=== PATIENT | female | born 1950 | race Caucasian/White ===

== ENCOUNTER → 2016-05-22 | Outpatient (CLI) | payer OTHER ==
[2014-09-27 16:21] VITALS: BP 153/91
[2016-05-22 14:14] LABS: BILIRUBIN,URINE NEGATIVE (NEGATIVE); BLOOD/HEMOGLOBIN,URINE 1+ (NEGATIVE); GLUCOSE, URINE NEGATIVE (NEGATIVE); KETONES,URINE NEGATIVE (NEGATIVE); LEUKOCYTE ESTERASE ,URINE NEGATIVE (NEGATIVE); NITRITES,URINE NEGATIVE (NEGATIVE); PROTEIN,URINE NEGATIVE (NEGATIVE); UROBILINOGEN,URINE NORMAL (NORMAL)
[2016-05-22 14:16] LABS: BASOPHILS % (AUTO) 0.5 % (0.2-1.0); EOSINOPHILS # (AUTO) 0.2 x10^3/uL (0.0-0.2); EOSINOPHILS % (AUTO) 3.5 % (0.9-2.9); HEMATOCRIT 39.5 % (36.0-47.0); LYMPHOCYTES # (AUTO) 1.5 X10^3/uL (1.3-2.9); LYMPHOCYTES % (AUTO) 27.5 % (21.0-51.0); MEAN CORPUSCULAR HEMOGLOBIN 30.2 pg (27.0-34.0); MEAN CORPUSCULAR HGB CONC 32.9 g/dL (33.0-35.0); MEAN CORPUSCULAR VOLUME 91.9 fL (80.0-100.0); MEAN PLATELET VOLUME 8.1 fL (7.4-11.0); MONOCYTES # (AUTO) 0.5 x10^3/uL (0.3-0.8); MONOCYTES % (AUTO) 9.1 % (0.0-13.0); NEUTROPHILS # (AUTO) 3.3 x10^3/uL (2.2-4.8); NEUTROPHILS % (AUTO) 59.4 % (42.0-75.0); PLATELET COUNT 311 X10^3/uL (150.0-450.0); RED BLOOD COUNT 4.29 X10^6/uL (3.5-5.4); RED CELL DISTRIBUTION WIDTH 13.2 % (11.6-16.5); WHITE BLOOD COUNT 5.6 X10^3/uL (3.6-10.0)
[2016-05-22 14:17] LABS: BLOOD UREA NITROGEN 12 mg/dL (7-18); CALCIUM 8.4 mg/dL (8.5-10.1); CARBON DIOXIDE 27.7 mmol/L (21-32); CHLORIDE 108 mmol/L (98-107); CREATININE 0.71 mg/dL (0.55-1.02); GLUCOSE 82 mg/dL (65-99); SODIUM 145 mmol/L (136-145); eGFR BLACK RACES > 60 (>60); eGFR NON BLACK RACES > 60 (>60)
[2016-05-22 14:31] LABS: APPEARANCE,URINE CLEAR (CLEAR); BACTERIA,URINE TRACE /HPF (NEGATIVE); COLOR,URINE YELLOW (YELLOW); MUCUS,URINE MODERATE /HPF (NEGATIVE); RBC,URINE RARE /HPF (NEGATIVE); SQUAMOUS EPITHELIAL CELL,UR MODERATE /HPF (NEGATIVE)
== END ==
LOC: LAB 13:43
PROVIDERS: ATTEND Orthopaedic Surgery
DX: Z01.818 Encounter for other preprocedural examination (principal); Z01.810 Encounter for preprocedural cardiovascular examination; Z01.811 Encounter for preprocedural respiratory examination; Z79.01 Long term (current) use of anticoagulants; N39.0 Urinary tract infection, site not specified; M16.11 Unilateral primary osteoarthritis, right hip
CPT/HCPCS: 36415; 71020; 80048; 81001; 85025; 85610; 93005; 93010

== ENCOUNTER → 2016-09-01 | Outpatient (CLI) | payer OTHER ==
[2014-09-27 16:21] VITALS: BP 153/91
--- NOTE | 2016-09-01 11:33 | RAD ---
History: Right hip pain Study: Right hip Findings: Supine view of the pelvis and an AP and frog-leg views the right hip were obtained. There is a right total hip prosthesis in place which appears in normal alignment. There are advanced degen erative changes of the left hip with [id number] and marked marginal spurring from the lateral aspe ct of the femoral head. No fracture or bony destructive process is seen. Degenerative changes of the lower lumbar spine are noted. Impression: Right total hip prosthesis. Advanced osteoarthrosis of the left hip. Reported By:
== END ==
LOC: RAD 10:58
DX: M16.11 Unilateral primary osteoarthritis, right hip (principal); Z96.641 Presence of right artificial hip joint
CPT/HCPCS: 73501

== ENCOUNTER → 2017-02-05 | Outpatient (CLI) | payer OTHER ==
[2014-09-27 16:21] VITALS: BP 153/91
[2017-02-05 13:58] LABS: BILIRUBIN,URINE NEGATIVE (NEGATIVE); BLOOD/HEMOGLOBIN,URINE 1+ (NEGATIVE); GLUCOSE, URINE NEGATIVE (NEGATIVE); KETONES,URINE NEGATIVE (NEGATIVE); LEUKOCYTE ESTERASE ,URINE NEGATIVE (NEGATIVE); NITRITES,URINE NEGATIVE (NEGATIVE); PROTEIN,URINE NEGATIVE (NEGATIVE); UROBILINOGEN,URINE NORMAL (NORMAL)
[2017-02-05 14:05] LABS: APPEARANCE,URINE CLEAR (CLEAR); BACTERIA,URINE TRACE /HPF (NEGATIVE); COLOR,URINE YELLOW (YELLOW); MUCUS,URINE MODERATE /HPF (NEGATIVE); RBC,URINE 0-1 /HPF (NEGATIVE); SQUAMOUS EPITHELIAL CELL,UR MODERATE /HPF (NEGATIVE)
[2017-02-05 14:10] LABS: BASOPHILS # (AUTO) 0.1 X10^3/uL (0.0-0.1); BASOPHILS % (AUTO) 1.2 % (0.2-1.0); EOSINOPHILS # (AUTO) 0.3 x10^3/uL (0.0-0.2); EOSINOPHILS % (AUTO) 2.8 % (0.9-2.9); HEMATOCRIT 41.3 % (36.0-47.0); HEMOGLOBIN 14.1 g/dL (12.0-16.0); LYMPHOCYTES # (AUTO) 2.2 X10^3/uL (1.3-2.9); LYMPHOCYTES % (AUTO) 23.6 % (21.0-51.0); MEAN CORPUSCULAR HEMOGLOBIN 30.8 pg (27.0-34.0); MEAN CORPUSCULAR VOLUME 90.6 fL (80.0-100.0); MONOCYTES # (AUTO) 0.7 x10^3/uL (0.3-0.8); MONOCYTES % (AUTO) 8.1 % (0.0-13.0); NEUTROPHILS % (AUTO) 64.3 % (42.0-75.0); PLATELET COUNT 357 X10^3/uL (150.0-450.0); RED BLOOD COUNT 4.56 X10^6/uL (3.5-5.4); RED CELL DISTRIBUTION WIDTH 14.4 % (11.6-16.5); WHITE BLOOD COUNT 9.3 X10^3/uL (3.6-10.0)
[2017-02-05 14:11] LABS: BLOOD UREA NITROGEN 14 mg/dL (7-18); CALCIUM 9.2 mg/dL (8.5-10.1); CARBON DIOXIDE 28.4 mmol/L (21-32); CHLORIDE 105 mmol/L (98-107); SODIUM 142 mmol/L (136-145); eGFR BLACK RACES > 60 (>60); eGFR NON BLACK RACES > 60 (>60)
--- NOTE | 2017-02-05 14:38 | RAD ---
Examination: Chest, PA and lateral views History: Preprocedure Comparison reference: 05/22/2016 Findings: Continued normal heart size with arteriosclerotic aorta. The right lung is clear. There are areas of linear fibrosis and parenchymal distortion in the left lower lung and lingula. Hyperinflati on is again noted. Impression: Findings suggest COPD and chronic fibrotic scarring left lung. No acute features identifi ed. Reported By:
== END ==
LOC: LAB 13:26
PROVIDERS: ATTEND Orthopaedic Surgery
DX: Z01.818 Encounter for other preprocedural examination (principal); Z01.810 Encounter for preprocedural cardiovascular examination; Z01.811 Encounter for preprocedural respiratory examination; Z79.01 Long term (current) use of anticoagulants; N39.0 Urinary tract infection, site not specified
CPT/HCPCS: 36415; 71020; 80048; 81001; 85025; 85610; 93005; 93010

== ENCOUNTER 2017-03-30 13:59 | Inpatient (IN) | payer OTHER ==
[2017-03-30 15:49] LABS: BASOPHILS # (AUTO) 0.1 X10^3/uL (0.0-0.1); BASOPHILS % (AUTO) 0.6 % (0.2-1.0); EOSINOPHILS # (AUTO) 0.1 x10^3/uL (0.0-0.2); EOSINOPHILS % (AUTO) 0.5 % (0.9-2.9); HEMATOCRIT 35.5 % (36.0-47.0); LYMPHOCYTES # (AUTO) 1.1 X10^3/uL (1.3-2.9); LYMPHOCYTES % (AUTO) 10.5 % (21.0-51.0); MEAN CORPUSCULAR HEMOGLOBIN 29.9 pg (27.0-34.0); MEAN CORPUSCULAR HGB CONC 33.8 g/dL (33.0-35.0); MEAN CORPUSCULAR VOLUME 88.7 fL (80.0-100.0); MEAN PLATELET VOLUME 8.2 fL (7.4-11.0); MONOCYTES % (AUTO) 10.1 % (0.0-13.0); NEUTROPHILS # (AUTO) 8.1 x10^3/uL (2.2-4.8); NEUTROPHILS % (AUTO) 78.3 % (42.0-75.0); PLATELET COUNT 427 X10^3/uL (150.0-450.0); RED CELL DISTRIBUTION WIDTH 15.2 % (11.6-16.5); WHITE BLOOD COUNT 10.4 X10^3/uL (3.6-10.0)
[2017-03-30 16:12] LABS: ALANINE AMINOTRANSFERASE 16 Units/L (12-78); ALBUMIN 2.3 g/dL (3.4-5.0); ALKALINE PHOSPHATASE 243 Units/L (46-116); ASPARTATE AMINO TRANSFERASE 20 Units/L (15-37); BLOOD UREA NITROGEN 24 mg/dL (7-18); CALCIUM 9.2 mg/dL (8.5-10.1); CARBON DIOXIDE 29.2 mmol/L (21-32); CHLORIDE 100 mmol/L (98-107); COR CA(FOR HYPOALB) 10.6 mg/dL (8.5-10.1); CREATINE KINASE 66 Units/L (26-192); CREATININE 0.87 mg/dL (0.55-1.02); SODIUM 137 mmol/L (136-145); TOTAL PROTEIN 6.9 g/dL (6.4-8.2); TROPONIN I < 0.02 ng/mL (0-1.5); eGFR BLACK RACES > 60 (>60); eGFR NON BLACK RACES > 60 (>60)
[2017-03-30] MEDS ORDERED: POTASSIUM CHL 40 MEQ/NS 0.45% 500 ML IV PRN (16:23)
[2017-03-30] MEDS ORDERED: MAGNESIUM SULFATE 1 GM/100 mL PREMIX 1 GM/100 ML BAG IV PRN (16:23)
[2017-03-30] MEDS ORDERED: POTASSIUM CHLORIDE LIQ 20 MEQ UDC PO PRN (16:23)
[2017-03-30] MEDS ORDERED: K-RIDER 10 MEQ/NS 100 ML 10 MEQ/100 ML BAG IV PRN (16:23)
[2017-03-30] MEDS ORDERED: K-LYTE EFFERVESCENT PO PRN (16:23)
[2017-03-30] MEDS: NS 1000 ML 1,000 ML IV SCH (16:34)
[2017-03-30] MEDS: MAG-OX TAB PO PRN (17:15)
[2017-03-30] MEDS: POTASSIUM CHL 60 MEQ/NS 0.45% 500 ML IV PRN (17:20)
[2017-03-30 17:36] VITALS: BMI 19.5
[2017-03-30 17:47] LABS: BILIRUBIN,URINE NEGATIVE (NEGATIVE); BLOOD/HEMOGLOBIN,URINE 3+ (NEGATIVE); GLUCOSE, URINE NEGATIVE (NEGATIVE); KETONES,URINE NEGATIVE (NEGATIVE); LEUKOCYTE ESTERASE ,URINE 3+ (NEGATIVE); NITRITES,URINE POSITIVE (NEGATIVE); PROTEIN,URINE 2+ (NEGATIVE); UROBILINOGEN,URINE NORMAL (NORMAL)
[2017-03-30 18:11] LABS: APPEARANCE,URINE HAZY (CLEAR); BACTERIA,URINE 2+ /HPF (NEGATIVE); COLOR,URINE YELLOW (YELLOW); RBC,URINE 0-5 /HPF (NEGATIVE); SQUAMOUS EPITHELIAL CELL,UR FEW /HPF (NEGATIVE)
[2017-03-30 20:15] LABS: CREATINE KINASE 36 Units/L (26-192); TROPONIN I < 0.02 ng/mL (0-1.5)
[2017-03-30 20:42] LABS: CKMB % 3.1 % (<4); CREATINE KINASE MB 1.1 ng/mL (0-4.0)
--- NOTE | 2017-03-30 22:31 | RAD ---
Indication: Shortness of breath Exam: Portable chest Comparison: 02/05/2007 Findings: The heart is normal. The pulmonary vessels are normal. The lungs are mildly hyperinflated a nd emphysematous . There is mild linear scarring scattered along the lung bases which is unchanged. N o consolidation or effusion is seen. The bones are intact. Impression: Stable chronic changes with no acute abnormality seen. Reported By:
--- NOTE | 2017-03-30 22:38 | RAD ---
Indication: Right hip pain Exam: AP pelvis and frog-leg view right hip Comparison: 09/01/2016 Findings: There is a metallic prosthesis in both hips which appear intact and in good position. The p rosthesis on the right is unchanged in position. There is a bony fragment seen along the left femoral neck portion of the prosthesis on the left which was not seen previously. The bones are osteopenic. The pelvis is intact. Impression: Status post left hip replacement with a small bony fragment seen just above the femoral neck portion of the prosthesis which may be related to prior surgery. Recommend clinical follow-up Right hip prosthesis in good position and unchanged . Diffuse osteopenia. Reported By:
[2017-03-31 00:33] LABS: CKMB % 3.5 % (<4); CREATINE KINASE 29 Units/L (26-192); CREATINE KINASE MB < 1.0 ng/mL (0-4.0); TROPONIN I < 0.02 ng/mL (0-1.5)
[2017-03-31 06:11] LABS: BASOPHILS # (AUTO) 0.1 X10^3/uL (0.0-0.1); BASOPHILS % (AUTO) 1.2 % (0.2-1.0); EOSINOPHILS # (AUTO) 0.1 x10^3/uL (0.0-0.2); EOSINOPHILS % (AUTO) 1.2 % (0.9-2.9); HEMATOCRIT 30.1 % (36.0-47.0); HEMOGLOBIN 10.2 g/dL (12.0-16.0); LYMPHOCYTES # (AUTO) 1.4 X10^3/uL (1.3-2.9); MEAN CORPUSCULAR HGB CONC 33.9 g/dL (33.0-35.0); MEAN CORPUSCULAR VOLUME 88.5 fL (80.0-100.0); MEAN PLATELET VOLUME 8.5 fL (7.4-11.0); MONOCYTES # (AUTO) 1.3 x10^3/uL (0.3-0.8); MONOCYTES % (AUTO) 14.3 % (0.0-13.0); NEUTROPHILS # (AUTO) 6.3 x10^3/uL (2.2-4.8); NEUTROPHILS % (AUTO) 68.3 % (42.0-75.0); PLATELET COUNT 375 X10^3/uL (150.0-450.0); RED CELL DISTRIBUTION WIDTH 15.4 % (11.6-16.5); WHITE BLOOD COUNT 9.3 X10^3/uL (3.6-10.0)
[2017-03-31 06:36] LABS: ALANINE AMINOTRANSFERASE 16 Units/L (12-78); ALBUMIN 1.6 g/dL (3.4-5.0); ALKALINE PHOSPHATASE 177 Units/L (46-116); ASPARTATE AMINO TRANSFERASE 29 Units/L (15-37); BLOOD UREA NITROGEN 16 mg/dL (7-18); CALCIUM 8.1 mg/dL (8.5-10.1); CARBON DIOXIDE 26.7 mmol/L (21-32); CHLORIDE 109 mmol/L (98-107); CREATININE 0.74 mg/dL (0.55-1.02); SODIUM 143 mmol/L (136-145); TOTAL PROTEIN 5.3 g/dL (6.4-8.2); eGFR BLACK RACES > 60 (>60); eGFR NON BLACK RACES > 60 (>60)
[2017-03-31] MEDS ORDERED: PATIENT'S HOME MEDICATION (Losartan Potassium [Losartan Potassium] 25 MG) PO SCH (09:00)
[2017-03-31] MEDS: PROTONIX TAB 40 MG PO SCH (09:07)
[2017-03-31] MEDS: POTASSIUM CHL 60 MEQ/NS 0.45% 500 ML IV PRN (09:07)
[2017-03-31] MEDS: COZAAR PO SCH (09:10)
[2017-03-31] MEDS ORDERED: PHARMACY CONSULT - TPN XX SCH (10:00)
[2017-03-31] MEDS ORDERED: MILK OF MAGNESIA PO SCH (10:00)
[2017-03-31] MEDS ORDERED: PROCALAMINE 3 % 1,000 ML IV SCH (11:00)
[2017-03-31] MEDS: ROCEPHIN VIAL 1 GM 1 GM in NS 100 ML IV + SPIKE MINIBAG* 100 ML IV SCH (11:04)
[2017-03-31] MEDS: COLACE CAP 100 MG PO SCH ×2 (11:04→22:23)
[2017-03-31] MEDS: ALBUMIN HUMAN 25%- 100ML 100 ML IV SCH (11:05)
[2017-03-31] MEDS: MIRALAX POWDER (1 DOSE 17GM) PO SCH ×2 (11:05→22:24)
--- NOTE | 2017-03-31 11:32 | CT ---
HISTORY: Altered mental status Study: CT brain without contrast Comparison: None Technique: Multiple axial images of the brain were obtained from the skull base to the vertex without administra tion of IV contrast. Findings: Imaging of the brain demonstrates no intracranial hemorrhage, mass effect, or midline shift. No extra -axial fluid collection is identified. There is CT evidence to suggest acute or early subacute infarc t. Mild global atrophy is noted. The ventricles are symmetric and nondilated. The basilar cisterns ar e patent. The bony structures are intact. IMPRESSION: 1. No acute intracranial process evident Reported By:
--- NOTE | 2017-03-31 11:45 | CT ---
HISTORY: Low back pain Study: CT lumbar spine without contrast Comparison: Lumbar radiographs performed on 09/06/2013 Technique: Multiple axial images of the lumbar spine were obtained from the thoracolumbar junction t o the sacrum without the administration of IV contrast. Sagittal and coronal reformats were performe d and reviewed. Findings: Daif-qp-lhdlzaif rightward curvature of the upper and mid lumbar spine is noted. There is minimal ret rolisthesis of L1 on L2, likely secondary to degenerative disc disease and facet arthropathy at this level. Vertebral body height is maintained throughout. No compression fracture is visualized. There i s severe loss of disc space height at the L1-L2 and L2-L3 levels with associated advanced degenerativ e endplate change. Moderate loss of disc space height is also present at the L3-L4 level with associa kristie degenerative endplate change as well. There is multilevel marginal osteophytosis. There is also m ultilevel facet hypertrophy which is most significant within the lower lumbar spine. At the L1-L2 lev el there is a broad-based disc osteophyte complex and facet hypertrophy, appearing to result in at le ast moderate neuroforaminal compromise on the left and mild neuroforaminal compromise on the right. A broad-based disc osteophyte complex with a left lateral recess predominance and facet hypertrophy ar e present at the L2-L3 level, resulting in moderate to severe neuroforaminal compromise on the left a nd mild neuroforaminal compromise on the right. At the L3-L4 level there is a broad-based disc osteop hyte complex with a left lateral recess predominance as well as facet hypertrophy, appearing to resul t in severe neuroforaminal compromise on the left and mild to moderate neuroforaminal compromise on t he right as well as mild canal stenosis. At the L4-L5 level there is a broad-based disc bulge as well as advanced facet hypertrophy and ligamentum flavum thickening, appearing to result in moderate michael l stenosis as well as severe neuroforaminal compromise on the right and aswq-mk-azcvfedv neuroforamin al compromise on the left. At the L5-S1 level there is a broad-based disc bulge as well as facet hype rtrophy, appearing to result in mild neuroforaminal compromise on the left. Evaluation of the pre and paravertebral soft tissues demonstrates at least mild pelvocaliectasis within the left kidney as wel l as ryly-vs-iptzmakc dilatation of the proximal left ureter, suggesting possible distal ureteral sto ne. Correlation with CT of the abdomen and pelvis renal stone protocol is recommended. 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 Emphysematous changes are noted within the bilateral lungs. IMPRESSION: 1. Multilevel lumbar spondylosis and facet hypertrophy, resulting in multilevel varying degrees of n euroforaminal compromise and canal stenoses as detailed above. 2. At least mild pelvocaliectasis within the left kidney as well as nasu-kz-pkzlzoqy dilatation of th e proximal left ureter, possibly secondary to a distal ureteral stone. Correlation with CT of the abd omen and pelvis renal stone protocol is recommended. Reported By:
--- NOTE | 2017-03-31 12:13 | DR.UPDATE ---
H&P Update History and Physical Update: WAS SEEN IN THE OFFICE ON 03/30/17. A H&P WAS COMPLETED PRIOR TO ADMISSION. PATIENT HAS BEEN SEEN AND EXAMINED WITH NO CHANGES NOTED TO H&P. Changes noted: NO Yes with the following:
[2017-03-31] MEDS ORDERED: MILK OF MAGNESIA PO PRN (13:58)
[2017-03-31] MEDS: NS 1000 ML 1,000 ML IV SCH (17:44)
[2017-04-01 06:24] LABS: BASOPHILS # (AUTO) 0.1 X10^3/uL (0.0-0.1); BASOPHILS % (AUTO) 0.8 % (0.2-1.0); EOSINOPHILS # (AUTO) 0.2 x10^3/uL (0.0-0.2); EOSINOPHILS % (AUTO) 1.7 % (0.9-2.9); HEMOGLOBIN 10.6 g/dL (12.0-16.0); LYMPHOCYTES # (AUTO) 1.3 X10^3/uL (1.3-2.9); LYMPHOCYTES % (AUTO) 11.1 % (21.0-51.0); MEAN CORPUSCULAR HEMOGLOBIN 29.4 pg (27.0-34.0); MEAN CORPUSCULAR HGB CONC 33.2 g/dL (33.0-35.0); MEAN CORPUSCULAR VOLUME 88.7 fL (80.0-100.0); MEAN PLATELET VOLUME 8.5 fL (7.4-11.0); MONOCYTES # (AUTO) 1.3 x10^3/uL (0.3-0.8); MONOCYTES % (AUTO) 11.6 % (0.0-13.0); NEUTROPHILS # (AUTO) 8.7 x10^3/uL (2.2-4.8); NEUTROPHILS % (AUTO) 74.8 % (42.0-75.0); PLATELET COUNT 410 X10^3/uL (150.0-450.0); RED CELL DISTRIBUTION WIDTH 15.1 % (11.6-16.5); WHITE BLOOD COUNT 11.7 X10^3/uL (3.6-10.0)
[2017-04-01 07:24] LABS: ALANINE AMINOTRANSFERASE 18 Units/L (12-78); ALBUMIN 2.1 g/dL (3.4-5.0); ALKALINE PHOSPHATASE 170 Units/L (46-116); ASPARTATE AMINO TRANSFERASE 23 Units/L (15-37); BLOOD UREA NITROGEN 6 mg/dL (7-18); CALCIUM 8.4 mg/dL (8.5-10.1); CARBON DIOXIDE 25.3 mmol/L (21-32); CHLORIDE 108 mmol/L (98-107); COR CA(FOR HYPOALB) 9.9 mg/dL (8.5-10.1); CREATININE 0.59 mg/dL (0.55-1.02); SODIUM 144 mmol/L (136-145); eGFR BLACK RACES > 60 (>60); eGFR NON BLACK RACES > 60 (>60)
[2017-04-01] MEDS: COLACE CAP 100 MG PO SCH ×2 (08:25→20:22)
[2017-04-01] MEDS: PROTONIX TAB 40 MG PO SCH (08:25)
[2017-04-01] MEDS: ROCEPHIN VIAL 1 GM 1 GM in NS 100 ML IV + SPIKE MINIBAG* 100 ML IV SCH (08:26)
[2017-04-01] MEDS: NS 1000 ML 1,000 ML IV SCH ×3 (08:26→22:31)
[2017-04-01] MEDS: ALBUMIN HUMAN 25%- 100ML 100 ML IV SCH (08:26)
[2017-04-01] MEDS: COZAAR PO SCH (08:27)
[2017-04-01] MEDS: POTASSIUM CHL 60 MEQ/NS 0.45% 500 ML IV PRN ×2 (11:27→21:18)
--- NOTE | 2017-04-01 15:46 | CT ---
CT abdomen and pelvis without contrast Indication: Lower back pain, dehydration, left ureter enlarged Technique: Helical CT images of the abdomen and pelvis were obtained without IV contrast. Reformatted images in the coronal and sagittal planes were also generated for review. Comparison: CT lumbar spine 03/31/2017 Findings: Moderate emphysema and large pleural blebs within the left lower lobe are noted. Visualized lung bases are otherwise clear. There is dextroscoliosis and moderate degenerative disc disease of t he lumbar spine. Partially visualized bilateral hip arthroplasties are noted without acute complicati on. No aggressive osseous lesions are identified. Within the limits of a noncontrast exam, there is a stable lobulated cyst within the right hepatic do me. A large geographic area of hypoattenuation within the peripheral right hepatic lobe also appears unchanged, again possibly representing a cavernous hemangioma. The collapsed gallbladder, spleen, kirkland creas and adrenals are unremarkable. There is a stable subcentimeter fat containing lesion within the inferior left kidney, suggestive for an AML. There is mild left-sided hydroureteronephrosis secondary to 2 suspected stones within the pr oximal left ureter, which measure approximately 3mm and 5 mm in size. There is also a punctate nonobs tructing stone within the inferior right kidney. No additional radiopaque urinary tract stones are id entified and there is no right-sided hydroureteronephrosis. There is mild colonic diverticulosis without CT evidence of acute diverticulitis. The appendix is not identified. There is no bowel inflammation or obstruction. The aortoiliac system is mildly calcified without aneurysm. Accounting for streak artifact, the urinary bladder is grossly normal. No free air , significant free fluid or bulky lymphadenopathy is identified. Impression: Very mild left-sided hydroureteronephrosis secondary to two suspected stones within the proximal left ureter, which measure up to 5 mm in size. Nonobstructing right nephrolithiasis. Grossly unchanged hypoattenuating lesion within the peripheral right hepatic lobe, again possibly rep resenting a cavernous hemangioma. Multi-phase CT is again recommended for further characterization. Emphysema, colonic diverticulosis and additional incidental findings, as above. Reported By:
--- NOTE | 2017-04-01 19:55 | PCM.PROG ---
Progress Note - Progress Note for Day of Date: 03/31/17 - Subjective Subjective: IS BEING TREATED FOR DEHYDRATION, RIGHT HIP AND LOWER BACK PAIN, AND A URINARY TRACT INFECTION. TODAY, SHE IS ALERT AND ORIENTED, LYING IN BED ON MORNING ROUNDS. JIM REPORTS GENERALIZED WEAKNESS, LOWER BACK PAIN, AND SUPRAPUBIC TENDERNESS. ON EXAMINATION, HEART IS REGULAR IN RATE AND RHYTHM. BILATERAL LUNGS ARE NOTED WITH DIMINISHED LUNG SOUNDS THROUGHOUT. ABDOMEN IS FLAT, SOFT, AND NOTED WITH MILD SUPRAPUBIC TENDERNESS ON PALPATION. NORMAL BOWEL SOUNDS NOTED IN ALL QUADRANTS. NORMAL RANGE OF MOTION NOTED TO EXTREMITIES. HER VITALS THIS MORNING ARE 98.9-97-18-95%-177/81. LABS WERE OBTAINED. ABNORMAL LAB VALUES INCLUDE THE FOLLOWING: RBC 3.40, HGB 10.2, HCT 30.1, POTASSIUM 2.9, CHLORIDE 109, CALCIUM 8.1, ALKALINE PHOS 177, TOTAL PROTEIN 5.3, ALBUMIN 1.6, VITAMIN B12 1358, FOLATE 6.0. A URINALYSIS OBTAINED ON ADMISSION REVEALS WBC TNTC, RBC 0-5, BACTERIA 2+, LEUKOCYTES 3+, OCCULT BLOOD 3+, PROTEIN 2+. BRAIN CT WAS NEGATIVE FOR ACUTE INTRACRANIAL ABNORMALITY. TODAY, WE WILL START PERIPHERAL TPN AND ALBUMIN FOR PROTEIN DEFICIENCY. WE WILL OBTAIN A LUMBAR SPINE CT FOR CONTINUED LOWER BACK PAIN. WE WILL ALSO START A BOWEL REGIMEN DUE TO COMPLAINTS OF NOT HAVING A BOWEL MOVEMENT IN SEVERAL DAYS. OTHERWISE, WE PLAN TO FOLLOW UP WITH AM LABS AND CONTINUE TO MONITOR PATIENT. - Past Medical Family Social History Past Med/Fam/Surg Hx: No changes since H&P Allergies: Allergies No Known Drug Allergies Allergy (Verified 03/30/17 15:28) - Review of Systems ROS: No change since H&P - Vital Signs and I&O's Vital Signs: Temperature 98.7 F Pulse Rate [Right] 91 Respiratory Rate 22 Blood Pressure [Right Arm] 188/82 Blood Pressure 153/91 O2 Sat by Pulse Oximetry 93 Intake and Output: Intake & Output 03/30/17 03/31/17 04/01/17 04/02/17 11:59 11:59 11:59 11:59 Intake Total 815 1025 1080 Output Total 980 Balance -165 1025 1080 - Physical Exam Oriented: Normal Eyes: Normal Ear: Normal Nose: Normal Throat: Normal Respiratory: Right, Left, Generalized, Diminished Cardiovascular: Normal Auscultation: Bowel Sounds: Normal Palpation: Normal Tenderness: Suprapubic, Mild. negative: Rebound, Guarding, Rigidity Skin: Decreased Turgur Musculoskeletal: Normal Psychiatric: Normal Mood Description: Calm Affect: Normal Speech Pattern: Clear, Appropriate - Laboratory and Diagnostics Result Diagrams: 04/01/17 05:46 04/01/17 05:40 Labs: 03/30/17 17:30 Urine,Clean Catch Urine Culture - Final Escherichia Coli Laboratory WBC 11.7 X10^3/uL (3.6-10.0) H 04/01/17 05:46 RBC 3.60 X10^6/uL (3.5-5.4) 04/01/17 05:46 Hgb 10.6 g/dL (12.0-16.0) L 04/01/17 05:46 Hct 32.0 % (36.0-47.0) L 04/01/17 05:46 MCV 88.7 fL (80.0-100.0) 04/01/17 05:46 MCH 29.4 pg (27.0-34.0) 04/01/17 05:46 MCHC 33.2 g/dL (33.0-35.0) 04/01/17 05:46 RDW 15.1 % (11.6-16.5) 04/01/17 05:46 Plt Count 410 X10^3/uL (150.0-450.0) 04/01/17 05:46 MPV 8.5 fL (7.4-11.0) 04/01/17 05:46 Neut % 74.8 % (42.0-75.0) 04/01/17 05:46 Lymph % 11.1 % (21.0-51.0) L 04/01/17 05:46 [place] % 11.6 % (0.0-13.0) 04/01/17 05:46 Eos % 1.7 % (0.9-2.9) 04/01/17 05:46 Baso % 0.8 % (0.2-1.0) 04/01/17 05:46 Neut # 8.7 x10^3/uL (2.2-4.8) H 04/01/17 05:46 Lymph # 1.3 X10^3/uL (1.3-2.9) 04/01/17 05:46 [place] # 1.3 x10^3/uL (0.3-0.8) H 04/01/17 05:46 Eos # 0.2 x10^3/uL (0.0-0.2) 04/01/17 05:46 Baso # 0.1 X10^3/uL (0.0-0.1) 04/01/17 05:46 Absolute Nucleated RBC 0.0 /100WBC 04/01/17 05:46 Sodium 144 mmol/L (136-145) 04/01/17 05:40 Corrected Sodium TNP 04/01/17 05:40 Potassium 2.4 mmol/L (3.5-5.1) L* 04/01/17 05:40 Chloride 108 mmol/L (98-107) H 04/01/17 05:40 Carbon Dioxide 25.3 mmol/L (21-32) 04/01/17 05:40 BUN 6 mg/dL (7-18) L 04/01/17 05:40 Creatinine 0.59 mg/dL (0.55-1.02) 04/01/17 05:40 Est GFR (MDRD) Af Amer > 60 (>60) 04/01/17 05:40 Est GFR (MDRD) Non-Af > 60 (>60) 04/01/17 05:40 Glucose 94 mg/dL (65-99) 04/01/17 05:40 Calcium 8.4 mg/dL (8.5-10.1) L 04/01/17 05:40 Corrected Calcium 9.9 mg/dL (8.5-10.1) 04/01/17 05:40 Magnesium 1.8 mg/dL (1.7-2.9) 03/30/17 15:40 Total Bilirubin 0.30 mg/dL (0.2-1.0) 04/01/17 05:40 AST 23 Units/L (15-37) 04/01/17 05:40 ALT 18 Units/L (12-78) 04/01/17 05:40 Alkaline Phosphatase 170 Units/L (46-116) H 04/01/17 05:40 Creatine Kinase 29 Units/L (26-192) 03/30/17 23:42 CK-MB (CK-2) < 1.0 ng/mL (0-4.0) 03/30/17 23:42 CK/CKMB % Calc 3.5 % (<4) 03/30/17 23:42 Troponin I < 0.02 ng/mL (0-1.5) 03/30/17 23:42 Total Protein 6.0 g/dL (6.4-8.2) L 04/01/17 05:40 Albumin 2.1 g/dL (3.4-5.0) L 04/01/17 05:40 Globulin 3.9 g/dL (2.5-4.5) 04/01/17 05:40 Albumin/Globulin Ratio 0.5 Ratio (1.1-2.1) L 04/01/17 05:40 Vitamin B12 1358 pg/mL (193-986) H 03/31/17 05:35 Folate 6.0 ng/mL (>8.6) L 03/31/17 05:35 Specimen Type Clean catch urine 03/30/17 17:30 Urine Color Yellow (YELLOW) 03/30/17 17:30 Urine Appearance Hazy (CLEAR) 03/30/17 17:30 Urine pH 7.0 (5.0 - 8.0) 03/30/17 17:30 Ur Specific [place] 1.010 (1.000-1.030) 03/30/17 17:30 Urine Protein 2+ (NEGATIVE) 03/30/17 17:30 Urine Glucose (UA) Negative (NEGATIVE) 03/30/17 17:30 Urine Ketones Negative (NEGATIVE) 03/30/17 17:30 Urine Occult Blood 3+ (NEGATIVE) 03/30/17 17:30 Urine Nitrite Positive (NEGATIVE) 03/30/17 17:30 Urine Bilirubin Negative (NEGATIVE) 03/30/17 17:30 Urine Urobilinogen Normal (NORMAL) 03/30/17 17:30 Ur Leukocyte Esterase 3+ (NEGATIVE) 03/30/17 17:30 Urine RBC 0-5 /HPF (NEGATIVE) 03/30/17 17:30 Urine WBC Tntc /HPF (NEGATIVE) 03/30/17 17:30 Ur Squamous Epith Cells Few /HPF (NEGATIVE) 03/30/17 17:30 Urine Bacteria 2+ /HPF (NEGATIVE) 01/29/18 17:30 Ur Culture Indicated? Yes/culture set up 03/30/17 17:30 - Plan (1) Dehydration Status: Acute Plan: NORMAL SALINE AT 80ML/HR, PROCAL AT 40, CONTINUE TO MONITOR (2) Urinary tract infection Status: Acute Qualifiers: Urinary tract infection type: acute cystitis Hematuria presence: without hematuria Qualified Code(s): N30.00 - Acute cystitis without hematuria Plan: ROCEPHIN 1GM IV DAILY, CONTINUE TO MONITOR (3) Lower back pain Status: Acute Qualifiers: Chronicity: acute Back pain laterality: unspecified Sciatica presence: unspecified whether sciatica present Qualified Code(s): M54.5 - Low back pain Plan: LUMBAR SPINE CT, CONTINUE TO MONITOR (4) Protein deficiency Status: Acute Plan: PROCAL @ 40ML/HR, ALBUMIN 25% IV DAILY, CONTINUE TO MONITOR
[2017-04-01] MEDS: PROCALAMINE 3 % 1,000 ML IV SCH (20:22)
[2017-04-01] MEDS: MIRALAX POWDER (1 DOSE 17GM) PO SCH (20:22)
[2017-04-01 20:51] LABS: MAGNESIUM 1.4 mg/dL (1.7-2.9)
[2017-04-01] MEDS: MAG-OX TAB PO PRN (21:18)
[2017-04-02] MEDS: MAG-OX TAB PO PRN (03:21)
[2017-04-02 06:19] LABS: BASOPHILS # (AUTO) 0.1 X10^3/uL (0.0-0.1); BASOPHILS % (AUTO) 0.5 % (0.2-1.0); EOSINOPHILS # (AUTO) 0.4 x10^3/uL (0.0-0.2); EOSINOPHILS % (AUTO) 3.2 % (0.9-2.9); HEMATOCRIT 32.1 % (36.0-47.0); HEMOGLOBIN 10.8 g/dL (12.0-16.0); LYMPHOCYTES # (AUTO) 1.3 X10^3/uL (1.3-2.9); LYMPHOCYTES % (AUTO) 9.7 % (21.0-51.0); MEAN CORPUSCULAR HEMOGLOBIN 29.5 pg (27.0-34.0); MEAN CORPUSCULAR HGB CONC 33.5 g/dL (33.0-35.0); MEAN CORPUSCULAR VOLUME 88.1 fL (80.0-100.0); MONOCYTES # (AUTO) 1.3 x10^3/uL (0.3-0.8); MONOCYTES % (AUTO) 9.7 % (0.0-13.0); NEUTROPHILS # (AUTO) 10.3 x10^3/uL (2.2-4.8); NEUTROPHILS % (AUTO) 76.9 % (42.0-75.0); PLATELET COUNT 432 X10^3/uL (150.0-450.0); RED BLOOD COUNT 3.65 X10^6/uL (3.5-5.4); RED CELL DISTRIBUTION WIDTH 15.4 % (11.6-16.5); WHITE BLOOD COUNT 13.4 X10^3/uL (3.6-10.0)
[2017-04-02 06:28] LABS: ALANINE AMINOTRANSFERASE 17 Units/L (12-78); ALBUMIN 2.3 g/dL (3.4-5.0); ALKALINE PHOSPHATASE 143 Units/L (46-116); ASPARTATE AMINO TRANSFERASE 18 Units/L (15-37); BLOOD UREA NITROGEN 5 mg/dL (7-18); CALCIUM 8.3 mg/dL (8.5-10.1); CARBON DIOXIDE 26.9 mmol/L (21-32); CHLORIDE 108 mmol/L (98-107); COR CA(FOR HYPOALB) 9.7 mg/dL (8.5-10.1); CREATININE 0.54 mg/dL (0.55-1.02); MAGNESIUM 1.5 mg/dL (1.7-2.9); SODIUM 143 mmol/L (136-145); TOTAL PROTEIN 5.9 g/dL (6.4-8.2); eGFR BLACK RACES > 60 (>60); eGFR NON BLACK RACES > 60 (>60)
[2017-04-02] MEDS: NS 1000 ML 1,000 ML IV SCH ×2 (09:21→22:09)
[2017-04-02] MEDS: COLACE CAP 100 MG PO SCH ×2 (09:21→22:09)
[2017-04-02] MEDS: PROTONIX TAB 40 MG PO SCH (09:21)
[2017-04-02] MEDS: COZAAR PO SCH (09:21)
[2017-04-02] MEDS: ROCEPHIN VIAL 1 GM 1 GM in NS 100 ML IV + SPIKE MINIBAG* 100 ML IV SCH (09:21)
[2017-04-02] MEDS ORDERED: ALBUMIN HUMAN 25%- 100ML 200 ML IV SCH (10:18)
[2017-04-02] MEDS: TORADOL 15 MG VIAL IVP SCH ×3 (12:15→22:10)
[2017-04-02] MEDS ORDERED: TYLENOL 325 MG TAB PO PRN (16:52)
[2017-04-02] MEDS: PROCALAMINE 3 % 1,000 ML IV SCH (21:41)
[2017-04-02] MEDS: MIRALAX POWDER (1 DOSE 17GM) PO SCH (22:09)
[2017-04-03] MEDS: TORADOL 15 MG VIAL IVP SCH (04:37)
[2017-04-03] MEDS: NS 1000 ML 1,000 ML IV SCH ×2 (04:38→10:59)
[2017-04-03 05:21] LABS: BASOPHILS # (AUTO) 0.1 X10^3/uL (0.0-0.1); BASOPHILS % (AUTO) 0.9 % (0.2-1.0); EOSINOPHILS # (AUTO) 0.5 x10^3/uL (0.0-0.2); EOSINOPHILS % (AUTO) 4.7 % (0.9-2.9); HEMATOCRIT 32.9 % (36.0-47.0); HEMOGLOBIN 10.9 g/dL (12.0-16.0); LYMPHOCYTES # (AUTO) 1.3 X10^3/uL (1.3-2.9); LYMPHOCYTES % (AUTO) 11.3 % (21.0-51.0); MEAN CORPUSCULAR HEMOGLOBIN 29.3 pg (27.0-34.0); MEAN CORPUSCULAR HGB CONC 33.1 g/dL (33.0-35.0); MEAN CORPUSCULAR VOLUME 88.7 fL (80.0-100.0); MEAN PLATELET VOLUME 8.3 fL (7.4-11.0); MONOCYTES # (AUTO) 0.8 x10^3/uL (0.3-0.8); MONOCYTES % (AUTO) 7.4 % (0.0-13.0); NEUTROPHILS # (AUTO) 8.6 x10^3/uL (2.2-4.8); NEUTROPHILS % (AUTO) 75.7 % (42.0-75.0); PLATELET COUNT 497 X10^3/uL (150.0-450.0); RED BLOOD COUNT 3.71 X10^6/uL (3.5-5.4); RED CELL DISTRIBUTION WIDTH 15.2 % (11.6-16.5); WHITE BLOOD COUNT 11.4 X10^3/uL (3.6-10.0)
[2017-04-03 05:32] LABS: ALANINE AMINOTRANSFERASE 17 Units/L (12-78); ALBUMIN 2.2 g/dL (3.4-5.0); ALKALINE PHOSPHATASE 132 Units/L (46-116); ASPARTATE AMINO TRANSFERASE 19 Units/L (15-37); BLOOD UREA NITROGEN 9 mg/dL (7-18); CALCIUM 8.5 mg/dL (8.5-10.1); CARBON DIOXIDE 26.7 mmol/L (21-32); CHLORIDE 106 mmol/L (98-107); COR CA(FOR HYPOALB) 9.9 mg/dL (8.5-10.1); CREATININE 0.61 mg/dL (0.55-1.02); MAGNESIUM 1.7 mg/dL (1.7-2.9); SODIUM 141 mmol/L (136-145); eGFR BLACK RACES > 60 (>60); eGFR NON BLACK RACES > 60 (>60)
[2017-04-03] MEDS: COLACE CAP 100 MG PO SCH (08:21)
[2017-04-03] MEDS: ROCEPHIN VIAL 1 GM 1 GM in NS 100 ML IV + SPIKE MINIBAG* 100 ML IV SCH (08:21)
[2017-04-03] MEDS: PROTONIX TAB 40 MG PO SCH (08:21)
[2017-04-03] MEDS: COZAAR PO SCH (08:21)
[2017-04-03] MEDS ORDERED: HEMOCYTE-PLUS PO SCH (09:00)
[2017-04-03 12:39] VITALS: BP 182/91
--- NOTE | 2017-04-03 19:50 | PCM.PROG ---
Progress Note - Progress Note for Day of Date: 04/01/17 - Subjective Subjective: IS BEING TREATED FOR DEHYDRATION, LOWER BACK PAIN, AND A URINARY TRACT INFECTION. TODAY, SHE IS ALERT AND ORIENTED, LYING IN BED ON MORNING ROUNDS. SHE CONTINUES TO REPORT GENERALIZED WEAKNESS, LOWER BACK PAIN, AND SUPRAPUBIC TENDERNESS. ON EXAMINATION, HEART IS REGULAR IN RATE AND RHYTHM. BILATERAL LUNGS CONTINUE WITH DIMINISHED LUNG SOUNDS THROUGHOUT. ABDOMEN IS FLAT , SOFT, AND NOTED WITH MILD SUPRAPUBIC TENDERNESS ON PALPATION. NORMAL BOWEL SOUNDS NOTED IN ALL QUADRANTS. NORMAL RANGE OF MOTION NOTED TO EXTREMITIES. HER VITALS THIS MORNING ARE 98.4-80-18-97%-175/80. LABS WERE OBTAINED. ABNORMAL LAB VALUES INCLUDE THE FOLLOWING: WBC 11.7, HGB 10.6, HCT 32.0, POTASSIUM 2.4, CHLORIDE 108, BUN 6, CALCIUM 8.4, ALK PHOS 170, TOTAL PROTEIN 6.0, ALBUMIN 2.1. URINE CULTURE REPORTS GROWTH OF E.COLI. IT IS SENSITIVE TO THE ROCEPHIN THAT WE STARTED HER ON YESTERDAY. BRAIN CT WAS NEGATIVE FOR ACUTE INTRACRANIAL ABNORMALITY. TODAY, WE WILL START PERIPHERAL TPN AND ALBUMIN FOR PROTEIN DEFICIENCY. WE OBTAINED A LUMBAR SPINE CT YESTERDAY IT REPORTED MULTILEVEL LUMBAR SPONDYLOSIS AND FACET HYPERTROPHY, RESULTING IN MULTILEVEL VARYING DEGREES OF NEUROFORAMINAL COMPROMISE AND CANAL STENOSES. AT LEAST MILD PELVOCALIECTASIS WITHIN THE LEFT KIDNEY WELL MILD TO MODERATE DILATION OF THE PROXIMAL LEFT URETER, POSSIBLY SECONDARY TO A DISTAL URETERAL STONE. CORRELATION WITH CT OF THE ABDOMEN/PELVIS RENAL STONE PROTOCOL IS RECOMMENDED. TODAY, WE PLAN TO INCREASE ALBUMIN TO TWO BAGS DAILY. WE WILL ALSO OBTAIN A CT OF THE ABD/PELVIS WITHOUT CONTRAST. OTHERWISE, WE WILL CONTINUE WITH CURRENT PLAN OF CARE. WE PLAN TO FOLLOW UP WITH AM LABS AND CONTINUE TO MONITOR PATIENT. - Past Medical Family Social History Past Med/Fam/Surg Hx: No changes since H&P Allergies: Allergies No Known Drug Allergies Allergy (Verified 03/30/17 15:28) - Review of Systems ROS: No change since H&P - Vital Signs and I&O's Vital Signs: Temperature 98.3 F Pulse Rate [Right] 74 Respiratory Rate 20 Blood Pressure [Right Arm] 182/91 Blood Pressure 153/91 O2 Sat by Pulse Oximetry 100 Intake and Output: Intake & Output 04/01/17 04/02/17 04/03/17/03/18 11:59 11:59 11:59 11:59 Intake Total 1025 3040 3110 Balance 1025 3040 3110 - Physical Exam Oriented: Normal Eyes: Normal Ear: Normal Nose: Normal Throat: Normal Respiratory: Right, Left, Generalized, Diminished Cardiovascular: Normal : Normal Auscultation: Bowel Sounds: Normal Palpation: Normal Tenderness: Suprapubic, Mild. negative: Rebound, Guarding, Rigidity Skin: Decreased Turgur Musculoskeletal: Normal Psychiatric: Normal Mood Description: Calm Affect: Normal Speech Pattern: Clear, Appropriate - Laboratory and Diagnostics Result Diagrams: 04/03/17 04:45 04/03/17 04:45 Labs: 03/30/17 17:30 Urine,Clean Catch Urine Culture - Final Escherichia Coli Laboratory WBC 11.4 X10^3/uL (3.6-10.0) H 04/03/17 04:45 RBC 3.71 X10^6/uL (3.5-5.4) 04/03/17 04:45 Hgb 10.9 g/dL (12.0-16.0) L 04/03/17 04:45 Hct 32.9 % (36.0-47.0) L 04/03/17 04:45 MCV 88.7 fL (80.0-100.0) 04/03/17 04:45 MCH 29.3 pg (27.0-34.0) 04/03/17 04:45 MCHC 33.1 g/dL (33.0-35.0) 04/03/17 04:45 RDW 15.2 % (11.6-16.5) 04/03/17 04:45 Plt Count 497 X10^3/uL (150.0-450.0) H 04/03/17 04:45 MPV 8.3 fL (7.4-11.0) 04/03/17 04:45 Neut % 75.7 % (42.0-75.0) H 04/03/17 04:45 Lymph % 11.3 % (21.0-51.0) L 04/03/17 04:45 [place] % 7.4 % (0.0-13.0) 04/03/17 04:45 Eos % 4.7 % (0.9-2.9) H 04/03/17 04:45 Baso % 0.9 % (0.2-1.0) 04/03/17 04:45 Neut # 8.6 x10^3/uL (2.2-4.8) H 04/03/17 04:45 Lymph # 1.3 X10^3/uL (1.3-2.9) 04/03/17 04:45 [place] # 0.8 x10^3/uL (0.3-0.8) 04/03/17 04:45 Eos # 0.5 x10^3/uL (0.0-0.2) H 04/03/17 04:45 Baso # 0.1 X10^3/uL (0.0-0.1) 04/03/17 04:45 Absolute Nucleated RBC 0.1 /100WBC 04/03/17 04:45 Sodium 141 mmol/L (136-145) 04/03/17 04:45 Corrected Sodium TNP 04/03/17 04:45 Potassium 3.4 mmol/L (3.5-5.1) L 04/03/17 04:45 Chloride 106 mmol/L (98-107) 04/03/17 04:45 Carbon Dioxide 26.7 mmol/L (21-32) 04/03/17 04:45 BUN 9 mg/dL (7-18) 04/03/17 04:45 Creatinine 0.61 mg/dL (0.55-1.02) 04/03/17 04:45 Est GFR (MDRD) Af Amer > 60 (>60) 04/03/17 04:45 Est GFR (MDRD) Non-Af > 60 (>60) 04/03/17 04:45 Glucose 105 mg/dL (65-99) H 04/03/17 04:45 Calcium 8.5 mg/dL (8.5-10.1) 04/03/17 04:45 Corrected Calcium 9.9 mg/dL (8.5-10.1) 04/03/17 04:45 Magnesium 1.7 mg/dL (1.7-2.9) 04/03/17 04:45 Total Bilirubin 0.20 mg/dL (0.2-1.0) 04/03/17 04:45 AST 19 Units/L (15-37) 04/03/17 04:45 ALT 17 Units/L (12-78) 04/03/17 04:45 Alkaline Phosphatase 132 Units/L (46-116) H 04/03/17 04:45 Creatine Kinase 29 Units/L (26-192) 03/30/17 23:42 CK-MB (CK-2) < 1.0 ng/mL (0-4.0) 03/30/17 23:42 CK/CKMB % Calc 3.5 % (<4) 03/30/17 23:42 Troponin I < 0.02 ng/mL (0-1.5) 03/30/17 23:42 Total Protein 6.0 g/dL (6.4-8.2) L 04/03/17 04:45 Albumin 2.2 g/dL (3.4-5.0) L 04/03/17 04:45 Globulin 3.8 g/dL (2.5-4.5) 04/03/17 04:45 Albumin/Globulin Ratio 0.6 Ratio (1.1-2.1) L 04/03/17 04:45 Vitamin B12 1358 pg/mL (193-986) H 03/31/17 05:35 Vitamin D 25-Hydroxy 54 ng/mL (30-80) 03/31/17 05:35 Folate 6.0 ng/mL (>8.6) L 03/31/17 05:35 Specimen Type Clean catch urine 03/30/17 17:30 Urine Color Yellow (YELLOW) 03/30/17 17:30 Urine Appearance Hazy (CLEAR) 03/30/17 17:30 Urine pH 7.0 (5.0 - 8.0) 03/30/17 17:30 Ur Specific [place] 1.010 (1.000-1.030) 03/30/17 17:30 Urine Protein 2+ (NEGATIVE) 03/30/17 17:30 Urine Glucose (UA) Negative (NEGATIVE) 03/30/17 17:30 Urine Ketones Negative (NEGATIVE) 03/30/17 17:30 Urine Occult Blood 3+ (NEGATIVE) 03/30/17 17:30 Urine Nitrite Positive (NEGATIVE) 03/30/17 17:30 Urine Bilirubin Negative (NEGATIVE) 03/30/17 17:30 Urine Urobilinogen Normal (NORMAL) 03/30/17 17:30 Ur Leukocyte Esterase 3+ (NEGATIVE) 03/30/17 17:30 Urine RBC 0-5 /HPF (NEGATIVE) 03/30/17 17:30 Urine WBC Tntc /HPF (NEGATIVE) 03/30/17 17:30 Ur Squamous Epith Cells Few /HPF (NEGATIVE) 03/30/17 17:30 Urine Bacteria 2+ /HPF (NEGATIVE) 03/30/17 17:30 Ur Culture Indicated? Yes/culture set up 03/30/17 17:30 - Plan (1) Dehydration Status: Acute Plan: NORMAL SALINE AT 80ML/HR, PROCAL AT 40, CONTINUE TO MONITOR (2) E. coli urinary tract infection Status: Acute (3) Lower back pain Status: Acute Qualifiers: Chronicity: acute Back pain laterality: unspecified Sciatica presence: unspecified whether sciatica present Qualified Code(s): M54.5 - Low back pain Plan: CONTINUE TO MONITOR (4) Protein deficiency Status: Acute Plan: PROCAL @ 40ML/HR, ALBUMIN 25% 2 BAGS IV DAILY, CONTINUE TO MONITOR (5) Abdominal pain Status: Acute Qualifiers: Abdominal location: periumbilical Qualified Code(s): R10.33 - Periumbilical pain Plan: ABDOMEN/PELVIS CT WITH CONTRAST, CONTINUE TO MONITOR
--- NOTE | 2017-04-05 20:55 | PCM.PROG ---
Progress Note - Progress Note for Day of Date: 04/02/17 - Subjective Subjective: IS BEING TREATED FOR DEHYDRATION, LOWER BACK PAIN, AND A URINARY TRACT INFECTION. TODAY, SHE IS ALERT AND ORIENTED, LYING IN BED ON MORNING ROUNDS. SHE CONTINUES TO REPORT GENERALIZED WEAKNESS, LOWER BACK PAIN, AND SUPRAPUBIC TENDERNESS. ON EXAMINATION, HEART IS REGULAR IN RATE AND RHYTHM. BILATERAL LUNGS CONTINUE WITH DIMINISHED LUNG SOUNDS THROUGHOUT. ABDOMEN IS FLAT , SOFT, AND NOTED WITH MILD SUPRAPUBIC TENDERNESS ON PALPATION. NORMAL BOWEL SOUNDS NOTED IN ALL QUADRANTS. NORMAL RANGE OF MOTION NOTED TO EXTREMITIES. HER VITALS THIS MORNING ARE 97.8-69-25-95%-182/88. LABS WERE OBTAINED. ABNORMAL LAB VALUES INCLUDE THE FOLLOWING: WBC INCREASED TO 13.4. OTHERWISE, SHE IS HEMODYNAMICALLY STABLE. ABDOMEN/PELVIS CT THAT WAS OBTAINED YESTERDAY REPORTED VERY MILD LEFT SIDED HYDROURETERNEPHROSIS SECONDARY TO TWO SUSPECTED STONES WITHIN THE PROXIMAL LEFT URETER, WHICH MEASURE UP TO 5MM IN SIZE. NONOBSTRUCTING RIGHT NEPHROLITHIASIS. TODAY, WE WILL START HER ON TORADOL 15MG IV Q6H [place] FOR PAIN CONTROL. OTHERWISE, WE WILL CONTINUE WITH CURRENT PLAN OF CARE. WE PLAN TO FOLLOW UP WITH AM LABS AND CONTINUE TO MONITOR PATIENT. - Past Medical Family Social History Past Med/Fam/Surg Hx: No changes since H&P Allergies: Allergies No Known Drug Allergies Allergy (Verified 03/30/17 15:28) - Review of Systems ROS: No change since H&P - Vital Signs and I&O's Vital Signs: Temperature 98.3 F Pulse Rate [Right] 74 Respiratory Rate 20 Blood Pressure [Right Arm] 182/91 Blood Pressure 153/91 O2 Sat by Pulse Oximetry 100 Intake and Output: Intake & Output 04/03/17 04/04/17 04/05/17 04/06/17 11:59 11:59 11:59 11:59 Intake Total 3110 Balance 3110 - Physical Exam Oriented: Normal Eyes: Normal Ear: Normal Nose: Normal Throat: Normal Respiratory: Right, Left, Generalized, Diminished Cardiovascular: Normal : Normal Auscultation: Bowel Sounds: Normal Palpation: Normal Tenderness: Suprapubic, Mild. negative: Rebound, Guarding, Rigidity Skin: Decreased [place] Musculoskeletal: Normal Psychiatric: Normal Mood Description: Calm Affect: Normal Speech Pattern: Clear, Appropriate - Laboratory and Diagnostics Result Diagrams: 04/03/17 04:45 04/03/17 04:45 Labs: 03/30/17 17:30 Urine,Clean Catch Urine Culture - Final Escherichia Coli Laboratory WBC 11.4 X10^3/uL (3.6-10.0) H 04/03/17 04:45 RBC 3.71 X10^6/uL (3.5-5.4) 04/03/17 04:45 Hgb 10.9 g/dL (12.0-16.0) L 04/03/17 04:45 Hct 32.9 % (36.0-47.0) L 04/03/17 04:45 MCV 88.7 fL (80.0-100.0) 04/03/17 04:45 MCH 29.3 pg (27.0-34.0) 04/03/17 04:45 MCHC 33.1 g/dL (33.0-35.0) 04/03/17 04:45 RDW 15.2 % (11.6-16.5) 04/03/17 04:45 Plt Count 497 X10^3/uL (150.0-450.0) H 04/03/17 04:45 MPV 8.3 fL (7.4-11.0) 04/03/17 04:45 Neut % 75.7 % (42.0-75.0) H 04/03/17 04:45 Lymph % 11.3 % (21.0-51.0) L 04/03/17 04:45 [place] % 7.4 % (0.0-13.0) 04/03/17 04:45 Eos % 4.7 % (0.9-2.9) H 04/03/17 04:45 Baso % 0.9 % (0.2-1.0) 04/03/17 04:45 Neut # 8.6 x10^3/uL (2.2-4.8) H 04/03/17 04:45 Lymph # 1.3 X10^3/uL (1.3-2.9) 04/03/17 04:45 [place] # 0.8 x10^3/uL (0.3-0.8) 04/03/17 04:45 Eos # 0.5 x10^3/uL (0.0-0.2) H 04/03/17 04:45 Baso # 0.1 X10^3/uL (0.0-0.1) 04/03/17 04:45 Absolute Nucleated RBC 0.1 /100WBC 04/03/17 04:45 Sodium 141 mmol/L (136-145) 04/03/17 04:45 Corrected Sodium TNP 04/03/17 04:45 Potassium 3.4 mmol/L (3.5-5.1) L 04/03/17 04:45 Chloride 106 mmol/L (98-107) 04/03/17 04:45 Carbon Dioxide 26.7 mmol/L (21-32) 04/03/17 04:45 BUN 9 mg/dL (7-18) 04/03/17 04:45 Creatinine 0.61 mg/dL (0.55-1.02) 04/03/17 04:45 Est GFR (MDRD) Af Amer > 60 (>60) 04/03/17 04:45 Est GFR (MDRD) Non-Af > 60 (>60) 04/03/17 04:45 Glucose 105 mg/dL (65-99) H 04/03/17 04:45 Calcium 8.5 mg/dL (8.5-10.1) 04/03/17 04:45 Corrected Calcium 9.9 mg/dL (8.5-10.1) 04/03/17 04:45 Magnesium 1.7 mg/dL (1.7-2.9) 04/03/17 04:45 Total Bilirubin 0.20 mg/dL (0.2-1.0) 04/03/17 04:45 AST 19 Units/L (15-37) 04/03/17 04:45 ALT 17 Units/L (12-78) 04/03/17 04:45 Alkaline Phosphatase 132 Units/L (46-116) H 04/03/17 04:45 Creatine Kinase 29 Units/L (26-192) 03/30/17 23:42 CK-MB (CK-2) < 1.0 ng/mL (0-4.0) 03/30/17 23:42 CK/CKMB % Calc 3.5 % (<4) 03/30/17 23:42 Troponin I < 0.02 ng/mL (0-1.5) 03/30/17 23:42 Total Protein 6.0 g/dL (6.4-8.2) L 04/03/17 04:45 Albumin 2.2 g/dL (3.4-5.0) L 04/03/17 04:45 Globulin 3.8 g/dL (2.5-4.5) 04/03/17 04:45 Albumin/Globulin Ratio 0.6 Ratio (1.1-2.1) L 04/03/17 04:45 Vitamin B12 1358 pg/mL (193-986) H 03/31/17 05:35 Vitamin D 25-Hydroxy 54 ng/mL (30-80) 03/31/17 05:35 Folate 6.0 ng/mL (>8.6) L 03/31/17 05:35 Specimen Type Clean catch urine 03/30/17 17:30 Urine Color Yellow (YELLOW) 03/30/17 17:30 Urine Appearance Hazy (CLEAR) 03/30/17 17:30 Urine pH 7.0 (5.0 - 8.0) 03/30/17 17:30 Ur Specific [place] 1.010 (1.000-1.030) 03/30/17 17:30 Urine Protein 2+ (NEGATIVE) 03/30/17 17:30 Urine Glucose (UA) Negative (NEGATIVE) 03/30/17 17:30 Urine Ketones Negative (NEGATIVE) 03/30/17 17:30 Urine Occult Blood 3+ (NEGATIVE) 03/30/17 17:30 Urine Nitrite Positive (NEGATIVE) 03/30/17 17:30 Urine Bilirubin Negative (NEGATIVE) 03/30/17 17:30 Urine Urobilinogen Normal (NORMAL) 03/30/17 17:30 Ur Leukocyte Esterase 3+ (NEGATIVE) 03/30/17 17:30 Urine RBC 0-5 /HPF (NEGATIVE) 03/30/17 17:30 Urine WBC Tntc /HPF (NEGATIVE) 03/30/17 17:30 Ur Squamous Epith Cells Few /HPF (NEGATIVE) 03/30/17 17:30 Urine Bacteria 2+ /HPF (NEGATIVE) 03/30/17 17:30 Ur Culture Indicated? Yes/culture set up 03/30/17 17:30 - Plan (1) Dehydration Status: Acute Plan: NORMAL SALINE AT 80ML/HR, PROCAL AT 40, CONTINUE TO MONITOR (2) E. coli urinary tract infection Status: Acute (3) Lower back pain Status: Acute Qualifiers: Chronicity: acute Back pain laterality: unspecified Sciatica presence: unspecified whether sciatica present Qualified Code(s): M54.5 - Low back pain Plan: TORADOL 15MG IV Q6H, CONTINUE TO MONITOR (4) Protein deficiency Status: Acute Plan: PROCAL @ 40ML/HR, ALBUMIN 25% 2 BAGS IV DAILY, CONTINUE TO MONITOR (5) Abdominal pain Status: Acute Qualifiers: Abdominal location: periumbilical Qualified Code(s): R10.33 - Periumbilical pain Plan: TORADOL 15MG IV Q6H , CONTINUE TO MONITOR (6) Nephrolithiasis Status: Acute Plan: TOROADOL 15MG IV Q6H, CONTINUE TO MONITOR
== END 2017-04-03 13:10 | disposition home or self-care (01) | DRG 641 ==
LOC: UNDOADMOB 13:59 → MED/SURG 13:59 → OBSVTOIN 03-31 08:00
PROVIDERS: ADMIT Internal Medicine; ATTEND Internal Medicine
DX: E86.0 Dehydration (principal); N30.00 Acute cystitis without hematuria; B96.29 Other Escherichia coli [E. coli] as the cause of diseases classified elsewhere; M54.5 Low back pain; E46 Unspecified protein-calorie malnutrition; R10.33 Periumbilical pain; N20.0 Calculus of kidney; R26.89 Other abnormalities of gait and mobility; E87.6 Hypokalemia; R44.3 Hallucinations, unspecified; M25.551 Pain in right hip; K59.00 Constipation, unspecified; M47.896 Other spondylosis, lumbar region
CPT/HCPCS: 36415; 70450; 71045; 72131; 73501; 74176; 80053; 81001; 82306; 82550; 82553; 82607; 82746; 83735; 84132; 84484; 85025; 87086; 87088; 87186; 93005; 97535; A4216; A4222; B5200; P9047; G0378; J0696

== ENCOUNTER 2022-08-18 11:24 | Observation (INO) ==
[2022-08-18 11:58] VITALS: BMI 19.5
--- NOTE | 2022-08-18 14:01 | DR.EXTPAIN ---
HPI Time seen Time Seen by Provider: 08/18/22 14:00 PCP Primary Care Physician: lorri Complaint/Symptoms Chief Complaint:: pt discharged from rehab facility x2 days ago for post surgery for right side femur fx. unable to be cared for at home because of wound on right foot to the heel area. dressing in place and draining when changed. COVID-19 Coronavirus risk:travel/contact w/high risk person: No Has patient experienced Coronavirus symptoms: No Source History Provided: Patient Mode of arrival Mode of Arrival: Wheelchair Timing Onset of Chief Complaint: 08/16/22 PMH PMH Past Medical History: Yes Past Medical History: Depression Past Surgical History: Yes Surgical History: Joint Replacement, Tonsillectomy and Other Family History History of Family Medical Conditions: Yes Family Medical History: Diabetes Mellitus and Coronary Artery Disease Social History Alcohol Use: None Do you use any recreational Drugs:: No Lives With: Alone Lives Where: Home Travel Risk Coronavirus risk:travel/contact w/high risk person: No Has patient experienced Coronavirus symptoms: No Infectious screening In the last 2 months have you had wt loss of >10#?: YES Have you had fever, night sweats or hemotysis?: No Have you traveled outside the country in the last 6 months?: No Isolation: Standard PE Vital Signs Vitals: Vital Signs Temperature 98.6 F Pulse Rate 110 Respiratory Rate 22 Blood Pressure 122/56 O2 Sat by Pulse Oximetry 96 ROR Labs Reviewed Result Diagrams: 08/18/22 14:54 08/18/22 14:54 Laboratory: WBC 9.3 X10^3/uL (3.6-10.0) 08/18/22 14:54 RBC 4.09 X10^6/uL (3.5-5.4) 08/18/22 14:54 Hgb 12.3 g/dL (12.0-16.0) 08/18/22 14:54 Hct 36.8 % (36.0-47.0) 08/18/22 14:54 MCV 89.9 fL (80.0-100.0) 08/18/22 14:54 MCH 30.0 pg (27.0-34.0) 08/18/22 14:54 MCHC 33.4 g/dL (33.0-35.0) 08/18/22 14:54 RDW 17.1 % (11.6-16.5) H 08/18/22 14:54 Plt Count 377 X10^3/uL (150.0-450.0) 08/18/22 14:54 MPV 7.2 fL (7.4-11.0) L 08/18/22 14:54 Neut % (Auto) 73.9 % (42.0-75.0) 08/18/22 14:54 Lymph % (Auto) 13.2 % (21.0-51.0) L 08/18/22 14:54 [place] % (Auto) 7.7 % (0.0-13.0) 08/18/22 14:54 Eos % (Auto) 4.4 % (0.9-2.9) H 08/18/22 14:54 Baso % (Auto) 0.8 % (0.2-1.0) 08/18/22 14:54 Neut # (Auto) 6.9 x10^3/uL (2.2-4.8) H 08/18/22 14:54 Lymph # (Auto) 1.2 X10^3/uL (1.3-2.9) L 08/18/22 14:54 [place] # (Auto) 0.7 x10^3/uL (0.3-0.8) 08/18/22 14:54 Eos # (Auto) 0.4 x10^3/uL (0.0-0.2) H 08/18/22 14:54 Baso # (Auto) 0.1 X10^3/uL (0.0-0.1) 08/18/22 14:54 Absolute Nucleated RBC 0.0 /100WBC 08/18/22 14:54 Sodium 141 mmol/L (136-145) 08/18/22 14:54 Corrected Sodium TNP 08/18/22 14:54 Potassium 3.9 mmol/L (3.5-5.1) 08/18/22 14:54 Chloride 107 mmol/L (98-107) 08/18/22 14:54 Carbon Dioxide 23.1 mmol/L (21-32) 08/18/22 14:54 BUN 14 mg/dL (7-18) 08/18/22 14:54 Creatinine 0.87 mg/dL (0.55-1.02) 08/18/22 14:54 Est GFR (MDRD) Af Amer > 60 (>60) 08/18/22 14:54 Est GFR (MDRD) Non-Af > 60 (>60) 08/18/22 14:54 Glucose 79 mg/dL (65-99) 08/18/22 14:54 Calcium 9.2 mg/dL (8.5-10.1) 08/18/22 14:54 Corrected Calcium 10.2 mg/dL (8.5-10.1) H 08/18/22 14:54 Total Bilirubin 0.30 mg/dL (0.2-1.0) 08/18/22 14:54 AST 13 Units/L (15-37) L 08/18/22 14:54 ALT 14 Units/L (12-78) 08/18/22 14:54 Alkaline Phosphatase 90 Units/L (46-116) 08/18/22 14:54 Total Protein 7.3 g/dL (6.4-8.2) 08/18/22 14:54 Albumin 2.8 g/dL (3.4-5.0) L 08/18/22 14:54 Globulin 4.5 g/dL (2.5-4.5) 08/18/22 14:54 Albumin/Globulin Ratio 0.6 Ratio (1.1-2.1) L 08/18/22 14:54 Opioid Opioid Risk Tool Age (Sanya box if 16-45): No History of Preadolescent Sexual Abuse: No Total: 0 Total Score Risk Category: Low Risk Copyright: [place] CHAKRABORTY predicting aberrant behaviors Discharge Plan Discharge Plan Patient Disposition: HOME, SELF-CARE Condition: Stable Prescriptions: No Action losartan 50 MG tablet 50 mg PO DAILY Qty: 30 3RF Rx Instructions: take one tablet daily megestrol 40 MG tablet 40 mg PO BID Qty: 60 3RF Rx Instructions: take one tablet twice a day latanoprost 0.005 % drops 1 drp OPHTHALMIC (EYE) BID Label Comments: [NO ORIGINAL SIG] Rx Instructions: pt instills into left eye once daily in the am and bid to the right eye donepezil 5 mg tablet 1 tab PO QDAY donepezil 5 mg tablet 1 tab PO QDAY albuterol sulfate 2.5 mg /3 mL (0.083 %) solution for nebulization 3 ml inhalation DAILY Label Comments: [NO ORIGINAL SIG] oxycodone-acetaminophen 7.5-325 mg tablet 1 tab PO QID PRN pilocarpine HCl 4 % drops 1 drp OPHTHALMIC (EYE) BID Label Comments: [NO ORIGINAL SIG] Rx Instructions: pt instills into left eye once daily in the am and bid to the right eye dicyclomine 10 mg capsule 1 cap PO TID Trelegy Ellipta 100-62.5-25 mcg blister with device 1 puff inhalation QDAY Health Concerns: Post Hospitalization: new medications and changes needed to prevent readmission or further decline. Pt educated and given instructions on all concerns. Plan of Treatment: Continue with present treatment and follow up plan. Pt is to keep follow up appointment as instructed and take medications as ordered. Orders to Discharge Patient Discharge Orders: Transfer (Routine); Ordered 08/18/22 Ordered By: DEANDRE KAYE Follow ups/Referrals Follow ups/Referrals: Kingston Herrmann [Primary Care Provider] - 3 days
[2022-08-18] MEDS ORDERED: NS 1,000 ML IV 1,000 ML ONE (15:07)
[2022-08-18] MEDS: NS 1,000 ML IV 1,000 ML IV SCH (15:12)
[2022-08-18 15:13] LABS: BASOPHILS # (AUTO) 0.1 X10^3/uL (0.0-0.1); BASOPHILS % (AUTO) 0.8 % (0.2-1.0); EOSINOPHILS # (AUTO) 0.4 x10^3/uL (0.0-0.2); EOSINOPHILS % (AUTO) 4.4 % (0.9-2.9); HEMATOCRIT 36.8 % (36.0-47.0); HEMOGLOBIN 12.3 g/dL (12.0-16.0); LYMPHOCYTES # (AUTO) 1.2 X10^3/uL (1.3-2.9); LYMPHOCYTES % (AUTO) 13.2 % (21.0-51.0); MEAN CORPUSCULAR HGB CONC 33.4 g/dL (33.0-35.0); MEAN CORPUSCULAR VOLUME 89.9 fL (80.0-100.0); MEAN PLATELET VOLUME 7.2 fL (7.4-11.0); MONOCYTES # (AUTO) 0.7 x10^3/uL (0.3-0.8); MONOCYTES % (AUTO) 7.7 % (0.0-13.0); NEUTROPHILS # (AUTO) 6.9 x10^3/uL (2.2-4.8); NEUTROPHILS % (AUTO) 73.9 % (42.0-75.0); PLATELET COUNT 377 X10^3/uL (150.0-450.0); RED BLOOD COUNT 4.09 X10^6/uL (3.5-5.4); RED CELL DISTRIBUTION WIDTH 17.1 % (11.6-16.5); WHITE BLOOD COUNT 9.3 X10^3/uL (3.6-10.0)
[2022-08-18 15:21] LABS: ALANINE AMINOTRANSFERASE 14 Units/L (12-78); ALBUMIN 2.8 g/dL (3.4-5.0); ALKALINE PHOSPHATASE 90 Units/L (46-116); ASPARTATE AMINO TRANSFERASE 13 Units/L (15-37); BLOOD UREA NITROGEN 14 mg/dL (7-18); CALCIUM 9.2 mg/dL (8.5-10.1); CARBON DIOXIDE 23.1 mmol/L (21-32); CHLORIDE 107 mmol/L (98-107); COR CA(FOR HYPOALB) 10.2 mg/dL (8.5-10.1); CREATININE 0.87 mg/dL (0.55-1.02); GLUCOSE 79 mg/dL (65-99); POTASSIUM 3.9 mmol/L (3.5-5.1); SODIUM 141 mmol/L (136-145); TOTAL PROTEIN 7.3 g/dL (6.4-8.2); eGFR NON BLACK RACES > 60 (>60)
[2022-08-18 20:26] LABS: BILIRUBIN,URINE NEGATIVE (NEGATIVE); BLOOD/HEMOGLOBIN,URINE NEGATIVE (NEGATIVE); GLUCOSE, URINE NEGATIVE (NEGATIVE); KETONES,URINE NEGATIVE (NEGATIVE); LEUKOCYTE ESTERASE ,URINE NEGATIVE (NEGATIVE); NITRITES,URINE NEGATIVE (NEGATIVE); PROTEIN,URINE NEGATIVE (NEGATIVE); UROBILINOGEN,URINE NORMAL (NORMAL)
[2022-08-18 21:47] LABS: APPEARANCE,URINE CLEAR (CLEAR); COLOR,URINE YELLOW (YELLOW)
[2022-08-18] MEDS: NORCO 5/325 MG TAB PO PRN (22:53)
[2022-08-19] MEDS: NS 1,000 ML IV 1,000 ML IV SCH ×2 (05:18→20:03)
--- NOTE | 2022-08-19 06:01 | RAD ---
HISTORYRight ankle painSTUDYRight ankle three viewsCOMPARISONNoneFINDINGSThe bones are osteopenic. There is no evidence for fracture, lytic, or blastic lesion. No joint erosion or joint effusion is identified. No soft tissue abnormality is identified.IMPRESSIONOsteopeniaElectronically signed by: JAMIE ROBIN (Aug 19, 2022 06:00:03)
[2022-08-19 06:25] LABS: BASOPHILS % (AUTO) 0.8 % (0.2-1.0); EOSINOPHILS # (AUTO) 0.5 x10^3/uL (0.0-0.2); EOSINOPHILS % (AUTO) 7.5 % (0.9-2.9); HEMATOCRIT 31.9 % (36.0-47.0); HEMOGLOBIN 10.6 g/dL (12.0-16.0); LYMPHOCYTES # (AUTO) 1.4 X10^3/uL (1.3-2.9); LYMPHOCYTES % (AUTO) 22.2 % (21.0-51.0); MEAN CORPUSCULAR HGB CONC 33.3 g/dL (33.0-35.0); MEAN CORPUSCULAR VOLUME 90.2 fL (80.0-100.0); MEAN PLATELET VOLUME 7.8 fL (7.4-11.0); MONOCYTES # (AUTO) 0.7 x10^3/uL (0.3-0.8); MONOCYTES % (AUTO) 11.2 % (0.0-13.0); NEUTROPHILS # (AUTO) 3.6 x10^3/uL (2.2-4.8); NEUTROPHILS % (AUTO) 58.3 % (42.0-75.0); PLATELET COUNT 284 X10^3/uL (150.0-450.0); RED BLOOD COUNT 3.53 X10^6/uL (3.5-5.4); RED CELL DISTRIBUTION WIDTH 16.8 % (11.6-16.5); WHITE BLOOD COUNT 6.2 X10^3/uL (3.6-10.0)
[2022-08-19 06:43] LABS: ALANINE AMINOTRANSFERASE 11 Units/L (12-78); ALBUMIN 2.1 g/dL (3.4-5.0); ALKALINE PHOSPHATASE 66 Units/L (46-116); ASPARTATE AMINO TRANSFERASE 11 Units/L (15-37); BLOOD UREA NITROGEN 14 mg/dL (7-18); CALCIUM 8.2 mg/dL (8.5-10.1); CARBON DIOXIDE 22.3 mmol/L (21-32); CHLORIDE 110 mmol/L (98-107); COR CA(FOR HYPOALB) 9.7 mg/dL (8.5-10.1); CREATININE 0.79 mg/dL (0.55-1.02); GLUCOSE 82 mg/dL (65-99); POTASSIUM 3.5 mmol/L (3.5-5.1); SODIUM 142 mmol/L (136-145); TOTAL PROTEIN 5.6 g/dL (6.4-8.2); eGFR NON BLACK RACES > 60 (>60)
--- NOTE | 2022-08-19 07:25 | RAD ---
HISTORYright foot pain, wound right foot and heelSTUDYFOOT, RIGHT three-viewCOMPARISONAnkle same dayFINDINGSNo acute cortical disruption or dislocation can be identified. No significant soft tissue swelling or injury can be seen. The visualized portions of the talus and calcaneus are unremarkable.IMPRESSIONNo acute fracture or radiographic evidence of osteomyelitis.Electronically signed by: JAMIE ROBIN (Aug 19, 2022 07:22:43)
[2022-08-19] MEDS ORDERED: KLOR-CON PO PRN (07:34)
[2022-08-19] MEDS ORDERED: K-RIDER 10 MEQ/NS 100 ML 10 MEQ/100 ML BAG IV PRN (07:34)
[2022-08-19] MEDS ORDERED: POTASSIUM CHL 40 MEQ/NS 0.45% 500 ML IV PRN (07:34)
[2022-08-19] MEDS ORDERED: POTASSIUM CHLORIDE LIQ PO PRN (07:34)
[2022-08-19] MEDS ORDERED: POTASSIUM CHL 60 MEQ/NS 0.45% 500 ML IV PRN (07:34)
[2022-08-19] MEDS ORDERED: MICRO K EXTEN CAP 10 MEQ PO PRN (07:34)
[2022-08-19] MEDS: K-DUR TAB 20 MEQ PO PRN (07:53)
[2022-08-19] MEDS: NORCO 5/325 MG TAB PO PRN (07:53)
[2022-08-19] MEDS: MAGNESIUM SULFATE 1 GRAM/100 mL PREMIX 1 G/100 ML BAG IV PRN ×2 (09:16→11:17)
[2022-08-19] MEDS: ZOSYN VIAL 3.375 GRAMS 3.375 G in NS 100 ML IV 100 ML IV SCH ×2 (12:23→21:23)
[2022-08-19] MEDS: GENTAMICIN TOPICAL OINT TOP SCH ×2 (12:23→20:04)
[2022-08-19] MEDS: VANCOMYCIN IV *PREMIX 1 G/200 ML BAG 1 G/200 ML PIGGYBACK IV SCH ×2 (12:23→20:03)
--- NOTE | 2022-08-19 14:56 | DR.H&P ---
H&P - History & Physical for Day of: H&P Date: 08/18/22 - Chief Complaint Chief Complaint: lower extremity qound, weakness, recent leg fracture - History of Present Illness History of Present Illness: RODY IS A 72 YEAR OLD PATIENT OF OURS. SHE PRESENTED TO THE ER WITH COMPLAINTS OF RIGHT LEG AND FOOT PAIN AND A WOUND TO THE RIGHT FOOT AND HEEL AREA. THERE WAS A DRESSING IN [place] ON ARRIVAL. PATIENT REPORTS THAT WHEN DRESSING IS REMOVED, THERE IS A MODERATE AMOUNT OF DRAINAGE FROM THE WOUND. PATIENT REPORTS THAT SHE WAS RELEASED FROM A REHAB FACILITY TWO DAYS AGO. SHE IS STATUS POST SURGERY FOR RIGHT SIDE FEMUR FRACTURE AND HIP FRACT URE. PATIENT REPORTS THAT SHE IS UNABLE TO CARE FOR HERSELF AT HOME. SHE LIVES AT HOME ALONE AND IS UNSTEADY WHEN USING HER WALKER DUE TO WOUNDS OF THE FOOT AND HEEL. SHE HAS BEEN INSTRUCTED BY ORTHO THAT SHE IS TO BE NON WEIGHT BEARING TO THE RIGHT LEG DUE TO FEMUR FX. SHE HAS ALSO HAD A PREVIOUS LEFT HIP REPAIR. SHE IS UNABLE TO PERFORM HER ADLs FOR HERSELF WITHOUT MODERATE ASSISTANCE FROM OTHERS. HER PMH INCLUDES HTN, DEPRESSION, COPD, GLAUCOMA, ARTHRITIS, CHRONIC BACK PAIN, JOINT REPLACEMENT, TONSILLECTOMY. ON ARRIVAL TO THE ER, HER VITALS WERE: 98.6-110-22-96%-122/56. LABS WERE OBTAINED. WBC 9.3, RBC 4.09, HGB 12.3, HCT 36.8, PLT COUNT 377, SODIUM 141, POTASSIUM 3.9, CHLORIDE 107, BUN 14, CREATININE 0.87, GLUCOSE 79, AST 13, ALT 14, ALK PHOS 90, TOTAL PROTEIN 7.3,ALBUMIN 2.8. A URINALYSIS WAS OBTAINED AND WAS UNREMARKABLE. DECISION WAS MADE TO ADMIT PATIENT TO THE HOSPITAL FOR FURTHER EVALUATION AND TREATMENT OF INFECTED ULCER OF THE RIGHT FOOT, RECENT FEMUR FRACTURE, GENERALIZED WEAKNESS, AND FAILURE TO THRIVE. SHE WAS STARTED ON NORMAL SALINE AT 50 ML/HR, IV ZOSYN, IV VANCOMYVIN, GENTAMICIN OINTMENT TO WOUNDS.. WE WILL RESUME HER HOME MEDICATIONS OF LATANOPROST EYE DROPS, ALBUTEROL NEBS, PILOCARPINE, DONEPEZIL, LOSARTAN, MEGACE, DICYCLOMINE, PERCOCET, AND DONEPEZIL. WE WILL HAVE PHYSICAL AND OCCUPATIONAL THERAPIES EVALUATE PATIENT. WE WILL CONSULT FOR EVALUATION OF WOUND. WE WILL OBTAIN BILATERAL LOWER EXTREMITY CTAs. OTHERWISE, WE WILL FOLLOW-UP WITH AM LABS AND CONTINUE TO MONITOR. TIME SPENT ON CLINICAL ASSESSMENT, REVIEWING LABS AND IMAGING, DECISION MAKING, AND DOCUMENTATION GREATER THAN 75 MINUTES. - Past Medical History Past Medical History: Arthritis, COPD, Depression, Hypertension Additional Medical History: glaucoma, right femur fracture - Past Surgical History Surgical History: Joint Replacement, Tonsillectomy, Other - Family History Family Medical History: Hypertension - Social History Does patient currently use any type of tobacco product: No Have you used tobacco products in the last 12 months: No Type of Tobacco Use: None Does any household member use tobacco: No Alcohol Use: None Drug Use: None - Review of Systems Constitutional: Weakness Eyes: No Symptoms Reported ENT: No Symptoms Reported Respiratory: No Symptoms Reported Cardiovascular: No Symptoms Reported Gastrointestinal: No Symptoms Reported Genitourinary: No Symptoms Reported Musculoskeletal: Back Pain, Leg Pain (righr), Foot Pain, Other (right hip) Skin: Wound (right heel) Neurological: Weakness - Physical Exam Vital Signs: Vital Signs Temperature 98.1 F Temperature 98.5 F Pulse Rate [Right Radial] 88 Pulse Rate [Right Radial] 78 Respiratory Rate 20 Respiratory Rate 20 Respiratory Rate 20 Respiratory Rate 18 Blood Pressure [Right Arm] 98/64 Blood Pressure [Right Arm] 129/64 O2 Sat by Pulse Oximetry 95 O2 Sat by Pulse Oximetry 96 08/19/22 12:00 Temperature 98.1 F Temperature Source Oral Pulse Rate [Right Radial] 88 Pulse Assessment Method [Right Radial] Dinamap Respiratory Rate 20 O2 Sat by Pulse Oximetry 95 Oxygen Delivery Method Room Air Blood Pressure [Right Arm] 98/64 Blood Pressure Mean [Right Arm] 75 Blood Pressure Source [Right Arm] Automatic Cuff Blood Pressure Position [Right Arm] Supine Oriented: Normal Eyes: Normal Ear: Normal Nose: Normal Throat: Normal Respiratory: Diminished Throughout Cardiovascular: Normal : Normal Auscultation: Bowel Sounds: Normal Palpation: Normal Tenderness: Normal Skin: Red, Tender, Wound (right heel) Musculoskeletal: Right, Hip, Leg, Foot, Back:Lumbar Psychiatric: Normal Mood Description: Calm Affect: Normal Speech Pattern: Clear - Assessment/Plan (1) Non-healing ulcer of right foot Qualifiers: Non-pressure ulcer stage: unspecified non-pressure ulcer stage Qualified Code(s): L97.519 - Non-pressure chronic ulcer of other part of right foot with unspecified severity Status: Acute (2) Right foot pain Status: Acute (3) Femur fracture, right Qualifiers: Encounter type: subsequent encounter Femur location: unspecified portion of femur Fracture type: closed Fracture morphology: unspecified fracture morphology Fracture healing: with routine healing Qualified Code(s): S72.91XD - Unspecified fracture of right femur, subsequent encounter for closed fracture with routine healing Status: Acute (4) Generalized weakness Status: Acute (5) HTN (hypertension) Qualifiers: Hypertension type: primary hypertension Qualified Code(s): I10 - Essential (primary) hypertension Status: Chronic - Allergies Allergies/Adverse Reactions: Allergies Allergy/AdvReac Type Severity Reaction Status Date / Time No Known Drug Allergies Allergy Verified 08/18/22 11:43 - Medications Home Medications: Home Medications Medication Instructions Recorded Confirmed albuterol sulfate 2.5 mg/3 mL 3 ml inhalation DAILY 08/18/22 08/18/22 (0.083 %) solution for nebulization dicyclomine 10 mg capsule 1 cap PO TID 08/18/22 08/18/22 donepezil 5 mg tablet 1 tab PO QDAY 08/18/22 08/18/22 donepezil 5 mg tablet 1 tab PO QDAY 08/18/22 08/18/22 fluticasone fur. 100 mcg-umeclid 1 puff inhalation QDAY 08/18/22 08/18/22 62.5 mcg-vilant 25 mcg inhalat.powder (Trelegy Ellipta) latanoprost 0.005 % eye drops 1 drp ophthalmic (eye) BID 08/18/22 08/18/22 oxycodone-acetaminophen 7.5 mg-325 1 tab PO QID PRN 08/18/22 08/18/22 mg tablet pilocarpine HCl 4 % eye drops 1 drp ophthalmic (eye) BID 08/18/22 08/18/22 Previous Rx's Medication Instructions Recorded losartan 50 mg tablet 50 mg PO DAILY #30 tabs 04/03/17 megestrol 40 mg tablet 40 mg PO BID #60 tabs 04/03/17
[2022-08-20] MEDS: NORCO 5/325 MG TAB PO PRN ×3 (01:45→16:11)
[2022-08-20] MEDS: TYLENOL 325 MG TAB PO PRN ×2 (04:34→16:11)
[2022-08-20] MEDS: ZOSYN VIAL 3.375 GRAMS 3.375 G in NS 100 ML IV 100 ML IV SCH ×3 (05:16→22:15)
[2022-08-20 05:38] LABS: BASOPHILS # (AUTO) 0.1 X10^3/uL (0.0-0.1); BASOPHILS % (AUTO) 1.1 % (0.2-1.0); EOSINOPHILS # (AUTO) 0.4 x10^3/uL (0.0-0.2); EOSINOPHILS % (AUTO) 5.9 % (0.9-2.9); HEMATOCRIT 28.3 % (36.0-47.0); HEMOGLOBIN 9.6 g/dL (12.0-16.0); LYMPHOCYTES # (AUTO) 1.5 X10^3/uL (1.3-2.9); LYMPHOCYTES % (AUTO) 22.2 % (21.0-51.0); MEAN CORPUSCULAR HEMOGLOBIN 30.3 pg (27.0-34.0); MEAN CORPUSCULAR HGB CONC 33.8 g/dL (33.0-35.0); MEAN CORPUSCULAR VOLUME 89.7 fL (80.0-100.0); MEAN PLATELET VOLUME 7.4 fL (7.4-11.0); MONOCYTES # (AUTO) 0.7 x10^3/uL (0.3-0.8); MONOCYTES % (AUTO) 10.4 % (0.0-13.0); NEUTROPHILS % (AUTO) 60.4 % (42.0-75.0); PLATELET COUNT 276 X10^3/uL (150.0-450.0); RED BLOOD COUNT 3.16 X10^6/uL (3.5-5.4); RED CELL DISTRIBUTION WIDTH 16.7 % (11.6-16.5); WHITE BLOOD COUNT 6.6 X10^3/uL (3.6-10.0)
[2022-08-20 06:00] LABS: ALANINE AMINOTRANSFERASE 12 Units/L (12-78); ALBUMIN 1.9 g/dL (3.4-5.0); ALKALINE PHOSPHATASE 59 Units/L (46-116); ASPARTATE AMINO TRANSFERASE 10 Units/L (15-37); BLOOD UREA NITROGEN 8 mg/dL (7-18); CALCIUM 7.5 mg/dL (8.5-10.1); CARBON DIOXIDE 19.8 mmol/L (21-32); CHLORIDE 112 mmol/L (98-107); COR CA(FOR HYPOALB) 9.2 mg/dL (8.5-10.1); CREATININE 0.81 mg/dL (0.55-1.02); GLUCOSE 94 mg/dL (65-99); MAGNESIUM 1.6 mg/dL (2.0-2.9); POTASSIUM 3.8 mmol/L (3.5-5.1); SODIUM 142 mmol/L (136-145); TOTAL PROTEIN 5.2 g/dL (6.4-8.2); eGFR NON BLACK RACES > 60 (>60)
[2022-08-20] MEDS: K-DUR TAB 20 MEQ PO PRN (06:18)
[2022-08-20] MEDS: VANCOMYCIN IV *PREMIX 1 G/200 ML BAG 1 G/200 ML PIGGYBACK IV SCH ×2 (08:37→21:34)
[2022-08-20] MEDS: GENTAMICIN TOPICAL OINT TOP SCH ×2 (08:38→21:15)
[2022-08-20] MEDS: MAGNESIUM SULFATE 1 GRAM/100 mL PREMIX 1 G/100 ML BAG IV PRN ×2 (11:15→18:00)
[2022-08-20] MEDS ORDERED: PILOCARPINE HCL 4% OP SCH (13:00)
[2022-08-20] MEDS: XALATAN OP SCH ×2 (13:42→21:25)
[2022-08-20] MEDS: ARICEPT TAB 5 MG PO SCH (13:42)
[2022-08-20] MEDS: LOVENOX INJ 40 MG SYR SC SCH (16:10)
--- NOTE | 2022-08-20 17:59 | CT ---
CTA OF THE ABDOMEN AND PELVIS AND BILATERAL LOWER EXTREMITY RUNOFF WITHOUT AND WITH CONTRASTCLINICAL INDICATION: PVD, RT FOOT PAINTECHNIQUE: Written informed consent was obtained. Noncontrast CTA images were initially obtained through the chest, abdomen pelvis, lower extremities. Non-gated spiral axial images of the lower thorax, abdomen, pelvis and lower extremities were obtained with nonionic intravenous contrast. 3D reconstructions were performed. Dose reduction techniques including Automated Exposure Control (AEC) and adjustment of mA and kV were utlized.COMPARISON:NoneFINDINGS:VASCULAR: .br.br EXTREMITY:Right Common Iliac Artery:No significant stenosis.Right Internal Iliac Artery:No significant stenosis.Right External Iliac Artery:No significant stenosis.Right Common Femoral Artery:No significant stenosis.Right Profunda Femoris Artery:No significant stenosis.Right Superficial Femoral Artery:No significant stenosis.Right Popliteal Artery:No significant stenosis.Right Anterior Tibial Artery: No significant stenosis. Crosses the ankle to supply the dorsalis pedis artery.Right Tibioperoneal Trunk:No significant stenosis.Right Posterior Tibial Artery:No significant stenosis. Crosses the ankle to supply the plantar arch.Right Peroneal Artery:No significant stenosis.LEFT PELVIS/LOWER EXTREMITY:Left Common Iliac Artery:No significant stenosis.Left Internal Iliac Artery:No significant stenosis.Left External Iliac Artery:No significant stenosis.Left Common Femoral Artery:No significant stenosis.Left Profunda Femoris Artery:No significant stenosis.Left Superficial Femoral Artery:No significant stenosis.Left Popliteal Artery:No significant stenosis.Left Anterior Tibial Artery:No significant stenosis. Crosses the ankle to supply the dorsalis pedis artery.Left Tibioperoneal Trunk:No significant stenosis.Left Posterior Tibial Artery:No significant stenosis. Crosses the ankle to supply the plantar arch.Left Peroneal Artery:No significant stenosis.CTA pelvis with intravenous contrast:No bowel obstruction or inflammation . No abnormal appearing mesenteric or retroperitoneal lymph nodes . No free fluid or fluid collections .Bladder is normal. Uterus appears to be present however is obscured by streak artifact from patient's bilateral hip prostheses. No pelvic adenopathy or fluid collections.No aggressive osseous lesions.IMPRESSION:1. No significant stenosis of the arteries of the lower extremities.Electronically signed by: NASRIN PEREIRA (Aug 20, 2022 17:58:20)
--- NOTE | 2022-08-20 18:11 | PCM.PROG ---
Progress Note - Progress Note for Day of Date of Exam: 08/20/22 - Subjective Subjective: MARY ELLEN IS A 72 YEAR OLD PATIENT OF DR CALLEJAS. SHE PRESENTED TO THE ER WITH COMPLAINTS OF RIGHT LEG AND FOOT PAIN AND A WOUND TO THE RIGHT FOOT AND HEEL AREA. THERE WAS A DRESSING IN [place]. PATIENT REPORTS THAT WHEN DRESSING IS REMOVED, THERE IS A MODERATE AMOUNT OF DRAINAGE FROM THE WOUND. PATIENT REPORTS THAT SHE WAS RELEASED FROM A REHAB FACILITY TWO DAYS AGO. SHE IS STATUS POST SURGERY FOR RIGHT SIDE FEMUR FRACTURE AND HIP FRACTURE. PATIENT REPORTS THAT SHE IS UNABLE TO CARE FOR HERSELF AT HOME. SHE LIVES AT HOME ALONE AND IS UNSTEADY WHEN USING HER WALKER DUE TO WOUNDS OF THE FOOT AND HEEL. SHE HAS BEEN INSTRUCTED BY [facility]THO THAT SHE IS TO BE NON WEIGHT BEARING TO THE RIGHT LEG DUE TO FEMUR FX. SHE HAS ALSO HAD A PREVIOUS LEFT HIP REPAIR. SHE IS UNABLE TO PERFORM HER ADLs FOR HERSELF WITHOUT MODERATE ASSISTANCE FROM OTHERS. HER PMH INCLUDES HTN, DEPRESSION, COPD, GLAUCOMA, ARTHRITIS, CHRONIC BACK PAIN, JOINT REPLACEMENT, TONSILLECTOMY. DR BREAUX HAS BEEN CONSULTED FOR PRESSURE ULCER. PT HAS BEEN REFERRED FOR [facility]PC CARE PLACEMENT. - Past Medical Family Social History Past Med/Fam/Surg Hx: No changes since H&P Allergies: Allergies No Known Drug Allergies Allergy (Verified 08/18/22 11:43) - Review of Systems ROS: No change since H&P - Vital Signs and I&O's Vital Signs: Vital Signs Temperature 98.7 F Temperature 98.7 F Pulse Rate [Right Radial] 82 Pulse Rate [Right Radial] 75 Respiratory Rate 18 Respiratory Rate 18 Respiratory Rate 18 Respiratory Rate 16 Respiratory Rate 20 Respiratory Rate 20 Blood Pressure [Right Arm] 129/62 Blood Pressure [Right Arm] 129/67 O2 Sat by Pulse Oximetry 97 O2 Sat by Pulse Oximetry 98 08/20/22 16:11 08/20/22 16:11 08/20/22 16:00 Temperature 98.7 F Temperature Source Oral Pulse Rate [Right Radial] 82 Respiratory Rate 16 18 20 Respiratory Effort Normal Non-Labored Normal Non-Labored O2 Sat by Pulse Oximetry 97 Oxygen Delivery Method Room Air Blood Pressure [Right Arm] 129/62 Blood Pressure Mean [Right Arm] 84 Blood Pressure Source [Right Arm] Automatic Cuff 08/20/22 17:11 08/20/22 17:11 Temperature Temperature Source Pulse Rate [Right Radial] Respiratory Rate 18 18 Respiratory Effort Normal Non-Labored Normal Non-Labored O2 Sat by Pulse Oximetry Oxygen Delivery Method Blood Pressure [Right Arm] Blood Pressure Mean [Right Arm] Blood Pressure Source [Right Arm] Intake and Output: Intake & Output 08/18/22 08/19/22 08/20/22 08/21/22 11:59 11:59 11:59 11:59 Intake Total 1102 / 1102 2094 / 2094 647 / 647 Balance 1102 / 1102094 / 2094 647 / 647 - Physical Exam Oriented: Normal Eyes: Normal Ear: Normal Nose: Normal Throat: Normal Respiratory: Diminished Cardiovascular: Normal : Normal Auscultation: Bowel Sounds: Normal Tenderness: Normal Skin: Red, Tender, Wound (right heel) Musculoskeletal: Right, Hip, Leg, Foot, Back:Lumbar Psychiatric: Normal Mood Description: Calm Affect: Normal Speech Pattern: Clear, Appropriate - Laboratory and Diagnostics Result Diagrams: 08/20/22 05:24 08/20/22 05:24 Labs: Laboratory WBC 6.6 X10^3/uL (3.6-10.0) 08/20/22 05:24 RBC 3.16 X10^6/uL (3.5-5.4) L 08/20/22 05:24 Hgb 9.6 g/dL (12.0-16.0) L 08/20/22 05:24 Hct 28.3 % (36.0-47.0) L 08/20/22 05:24 MCV 89.7 fL (80.0-100.0) 08/20/22 05:24 MCH 30.3 pg (27.0-34.0) 08/20/22 05:24 MCHC 33.8 g/dL (33.0-35.0) 08/20/22 05:24 RDW 16.7 % (11.6-16.5) H 08/20/22 05:24 Plt Count 276 X10^3/uL (150.0-450.0) 08/20/22 05:24 MPV 7.4 fL (7.4-11.0) 08/20/22 05:24 Neut % (Auto) 60.4 % (42.0-75.0) 08/20/22 05:24 Lymph % (Auto) 22.2 % (21.0-51.0) 08/20/22 05:24 [place] % (Auto) 10.4 % (0.0-13.0) 08/20/22 05:24 Eos % (Auto) 5.9 % (0.9-2.9) H 08/20/22 05:24 Baso % (Auto) 1.1 % (0.2-1.0) H 08/20/22 05:24 Neut # (Auto) 4.0 x10^3/uL (2.2-4.8) 08/20/22 05:24 Lymph # (Auto) 1.5 X10^3/uL (1.3-2.9) 08/20/22 05:24 [place] # (Auto) 0.7 x10^3/uL (0.3-0.8) 08/20/22 05:24 Eos # (Auto) 0.4 x10^3/uL (0.0-0.2) H 08/20/22 05:24 Baso # (Auto) 0.1 X10^3/uL (0.0-0.1) 08/20/22 05:24 Absolute Nucleated RBC 0.0 /100WBC 08/20/22 05:24 Sodium 142 mmol/L (136-145) 08/20/22 05:24 Corrected Sodium TNP 08/20/22 05:24 Potassium 3.8 mmol/L (3.5-5.1) 08/20/22 05:24 Chloride 112 mmol/L (98-107) H 08/20/22 05:24 Carbon Dioxide 19.8 mmol/L (21-32) L 08/20/22 05:24 BUN 8 mg/dL (7-18) 08/20/22 05:24 Creatinine 0.81 mg/dL (0.55-1.02) 08/20/22 05:24 Est GFR (MDRD) Af Amer > 60 (>60) 08/20/22 05:24 Est GFR (MDRD) Non-Af > 60 (>60) 08/20/22 05:24 Glucose 94 mg/dL (65-99) 08/20/22 05:24 Calcium 7.5 mg/dL (8.5-10.1) L 08/20/22 05:24 Corrected Calcium 9.2 mg/dL (8.5-10.1) 08/20/22 05:24 Magnesium 1.6 mg/dL (2.0-2.9) L 08/20/22 05:24 Total Bilirubin 0.20 mg/dL (0.2-1.0) 08/20/22 05:24 AST 10 Units/L (15-37) L 08/20/22 05:24 ALT 12 Units/L (12-78) 08/20/22 05:24 Alkaline Phosphatase 59 Units/L (46-116) 08/20/22 05:24 Total Protein 5.2 g/dL (6.4-8.2) L 08/20/22 05:24 Albumin 1.9 g/dL (3.4-5.0) L 08/20/22 05:24 Globulin 3.3 g/dL (2.5-4.5) 08/20/22 05:24 Albumin/Globulin Ratio 0.6 Ratio (1.1-2.1) L 08/20/22 05:24 Specimen Type Clean catch urine 08/18/22 19:30 Urine Color Yellow (YELLOW) 08/18/22 19:30 Urine Appearance Clear (CLEAR) 08/18/22 19:30 Urine pH 6.0 (5.0 - 8.0) 08/18/22 19:30 Ur Specific [place] 1.025 (1.000-1.030) 08/18/22 19:30 Urine Protein Negative (NEGATIVE) 08/18/22 19:30 Urine Glucose (UA) Negative (NEGATIVE) 08/18/22 19:30 Urine Ketones Negative (NEGATIVE) 08/18/22 19:30 Urine Blood Negative (NEGATIVE) 08/18/22 19:30 Urine Nitrite Negative (NEGATIVE) 08/18/22 19:30 Urine Bilirubin Negative (NEGATIVE) 08/18/22 19:30 Urine Urobilinogen Normal (NORMAL) 08/18/22 19:30 Ur Leukocyte Esterase Negative (NEGATIVE) 08/18/22 19:30 - Plan (1) Non-healing ulcer of right foot Status: Acute Qualifiers: Non-pressure ulcer stage: unspecified non-pressure ulcer stage Qualified Code(s): L97.519 - Non-pressure chronic ulcer of other part of right foot with unspecified severity Plan: CONTINUE IV ABTX, SURGICAL CONSULT. WOUND CARE, POST OPERATIVE PAIN. PHYSICAL THERAPY, BP CONTROL. REFERRAL FOR [facility] CARE PLACEMENT (2) Dehydration Status: Acute (3) Non healing left heel wound Status: Acute (4) Femur fracture, right Status: Acute Qualifiers: Encounter type: subsequent encounter Femur location: unspecified portion of femur Fracture type: closed Fracture morphology: unspecified fracture morphology Fracture healing: with routine healing Qualified Code(s): S72.91XD - Unspecified fracture of right femur, subsequent encounter for closed fracture with routine healing (5) HTN (hypertension) Status: Chronic Qualifiers: Hypertension type: primary hypertension Qualified Code(s): I10 - Essential (primary) hypertension
[2022-08-20 20:20] LABS: CREATININE 0.83 mg/dL (0.55-1.02); VANCOMYCIN,TROUGH 16.6 ug/mL (15-20)
[2022-08-20] MEDS ORDERED: PHARMACY COMMENT IV ONE (20:30)
[2022-08-20] MEDS ORDERED: PILOCARPINE 4% EACHEYE SCH (21:00)
[2022-08-20] MEDS: MEGACE PO SCH (21:33)
[2022-08-20] MEDS ORDERED: COLACE CAP 100 MG PO PRN (22:51)
[2022-08-21] MEDS: ZOSYN VIAL 3.375 GRAMS 3.375 G in NS 100 ML IV 100 ML IV SCH (05:15)
[2022-08-21] MEDS: NS 1,000 ML IV 1,000 ML IV SCH (05:20)
[2022-08-21 05:49] LABS: BASOPHILS # (AUTO) 0.1 X10^3/uL (0.0-0.1); BASOPHILS % (AUTO) 0.9 % (0.2-1.0); EOSINOPHILS # (AUTO) 0.5 x10^3/uL (0.0-0.2); EOSINOPHILS % (AUTO) 7.8 % (0.9-2.9); HEMATOCRIT 30.4 % (36.0-47.0); HEMOGLOBIN 10.1 g/dL (12.0-16.0); LYMPHOCYTES # (AUTO) 1.3 X10^3/uL (1.3-2.9); LYMPHOCYTES % (AUTO) 21.8 % (21.0-51.0); MEAN CORPUSCULAR HGB CONC 33.2 g/dL (33.0-35.0); MEAN CORPUSCULAR VOLUME 90.1 fL (80.0-100.0); MEAN PLATELET VOLUME 7.6 fL (7.4-11.0); MONOCYTES # (AUTO) 0.6 x10^3/uL (0.3-0.8); MONOCYTES % (AUTO) 10.2 % (0.0-13.0); NEUTROPHILS # (AUTO) 3.5 x10^3/uL (2.2-4.8); NEUTROPHILS % (AUTO) 59.3 % (42.0-75.0); PLATELET COUNT 302 X10^3/uL (150.0-450.0); RED BLOOD COUNT 3.37 X10^6/uL (3.5-5.4); RED CELL DISTRIBUTION WIDTH 16.8 % (11.6-16.5)
[2022-08-21 06:17] LABS: ALANINE AMINOTRANSFERASE 12 Units/L (12-78); ALKALINE PHOSPHATASE 60 Units/L (46-116); ASPARTATE AMINO TRANSFERASE 11 Units/L (15-37); BLOOD UREA NITROGEN 9 mg/dL (7-18); CALCIUM 7.9 mg/dL (8.5-10.1); CARBON DIOXIDE 20.3 mmol/L (21-32); CHLORIDE 113 mmol/L (98-107); COR CA(FOR HYPOALB) 9.5 mg/dL (8.5-10.1); CREATININE 0.75 mg/dL (0.55-1.02); GLUCOSE 87 mg/dL (65-99); MAGNESIUM 1.9 mg/dL (2.0-2.9); POTASSIUM 4.1 mmol/L (3.5-5.1); SODIUM 143 mmol/L (136-145); TOTAL PROTEIN 5.4 g/dL (6.4-8.2); eGFR NON BLACK RACES > 60 (>60)
[2022-08-21] MEDS: LOVENOX INJ 40 MG SYR SC SCH (09:00)
[2022-08-21] MEDS: ARICEPT TAB 5 MG PO SCH (09:00)
[2022-08-21] MEDS ORDERED: COZAAR PO SCH (09:00)
[2022-08-21] MEDS: VANCOMYCIN IV *PREMIX 1 G/200 ML BAG 1 G/200 ML PIGGYBACK IV SCH (09:00)
[2022-08-21] MEDS: MEGACE PO SCH (09:01)
[2022-08-21] MEDS: XALATAN OP SCH (09:01)
[2022-08-21] MEDS: GENTAMICIN TOPICAL OINT TOP SCH (09:05)
[2022-08-21] MEDS ORDERED: MILK OF MAGNESIA PO PRN (09:58)
[2022-08-21 10:33] VITALS: BP 143/78; PULSE 76; TEMP 97.7; O2SAT 97
== END 2022-08-21 14:20 | disposition home health service (06) ==
LOC: MED/SURG 11:24 → ER 11:24 → MED/SURG 16:50
PROVIDERS: ADMIT Internal Medicine; ATTEND Internal Medicine